=== PATIENT | female | born 1945 | race Caucasian/White ===

== ENCOUNTER 2018-10-18 02:17 | Inpatient (IN) | payer MEDICARE, BC ==
[~2018-10-18] VITALS: Ht 167.6 cm; Wt 82.8 kg
[2018-10-18] VITALS (12 sets, daily range): BP systolic 104–136; BP diastolic 47–66
--- NOTE | 2018-10-18 02:17 | NUR ---
[facility]D CALLED TO PT. HOME BY FAMILY PT. C/O SOB. EMS O2 SAT ON RA 69%. PT. PLACED ON C-PAP O2 SAT 99%. UPON ARRIVAL PT. O2 SAT DECREASING LOW 90'S HIGH 80'S. ORDERS FROM TO PLACE PT. ON BIPAP. BILATERAL LUNG GILMORE ARE RALES AND RHONCHI. PT. STATES SHE AWOKE AT 0100 FEELING SOB.
--- NOTE | 2018-10-18 02:23 | NUR ---
PT. PLACED ON BIPAP AT THIS TIME.
--- NOTE | 2018-10-18 02:31 | NUR ---
BIPABP 14/01, RATE OF 14, 40% FIO2
[2018-10-18] MEDS ORDERED: PROZAC10 MG PO (02:33)
[2018-10-18] MEDS ORDERED: LISINOPRIL2.5 MG PO (02:34)
[2018-10-18] MEDS ORDERED: PROTONIX40 M2 PO (02:34)
[2018-10-18] MEDS ORDERED: LOPRESSOR25 M1 PO (02:34)
--- NOTE | 2018-10-18 02:39 | NUR ---
IV LASIX AND IV MS GIVEN PER MD ORDER.
[2018-10-18] MEDS ORDERED: METO25TAB PO (02:55)
[2018-10-18 02:56] LABS: HEMATOCRIT 41.4 % (37.0-47.0); HEMOGLOBIN 13.3 g/dl (12.0-16.0); IMMATURE GRANULOCYTES 0.4 % (0.0-5.0); MEAN CELL VOLUME 99.3 fL CALC (80.0-100.0); MEAN CORPUSCULAR HGB 31.9 pG CALC (26.0-32.0); MEAN CORPUSCULAR HGB CONC 32.1 g/L CALC (32.0-36.0); NEUT# 7.6 thou/uL (2.00-7.15); RED BLOOD COUNT 4.17 mill/uL (4.20-5.60); RED CELL DISTRI WIDTH 13.4 % (11.5-15.5)
[2018-10-18] MEDS ORDERED: ZESTRIL10 M1 PO (02:56)
[2018-10-18] MEDS ORDERED: FOLIC ACID1 M1 PO (02:57)
[2018-10-18] MEDS ORDERED: VENTOLIN HFA IN (03:00)
[2018-10-18] MEDS ORDERED: TRELEGY ELLIPTA1 AER IN (03:01)
[2018-10-18 03:11] LABS: ALBUMIN 4.6 g/dL (3.2-5.0); BILIRUBIN, TOTAL 0.8 mg/dL (0.0-1.4); CREATININE 1.1 mg/dL (0.5-1.0); POTASSIUM 4.1 mmol/l (3.5-5.1); TOTAL PROTEIN 7.7 g/dL (6.3-8.2)
--- NOTE | 2018-10-18 03:30 | NUR ---
PT. HAS NOT VOIDED OF THIS TIME. PURE WICK CATH IN PLACE, NO URINE IN SUCTION CANISTER. AWARE.
--- NOTE | 2018-10-18 04:30 | NUR ---
SUCTION CANISTER HAS 500 ML CLEAR EMMANUEL URINE IN PLACE.
--- NOTE | 2018-10-18 04:51 | NUR ---
IN ROOM TO DISCUSS CLINICAL FINDINGS WITH PT. VERBALIZED UNDERSTANDING.
--- NOTE | 2018-10-18 04:54 | NUR ---
Admission Note Report Given to: JADIEL RN Transported by: Wheelchair X Stretcher Transported with: X Nurse Transporter X Patent IV X O2 X Professor Of Psychology
--- NOTE | 2018-10-18 04:58 | NUR ---
IV ABT. STARTED PER MD ORDER.
--- NOTE | 2018-10-18 05:00 | NUR ---
PT. TO ICU VIA STRETCHER, WITH RN AND RESP. THERAPIST. NO C/O PT.REMAINS ON BIPAP.
[2018-10-18 05:08] LABS: URINE BILIRUBIN - DIPSTICK NEGATIVE (NEGATIVE); URINE BLOOD DIPSTICK TRACE-INTACT (NEGATIVE); URINE COLOR YELLOW; URINE GLUCOSE - DIPSTICK 100 mg/dL (NEGATIVE); URINE KETONE NEGATIVE (NEGATIVE); URINE LEUK ESTERASE NEGATIVE (NEGATIVE); URINE NITRITE - DIPSTICK NEGATIVE (Negative); URINE PROTEIN - DIPSTICK NEGATIVE (NEG-TRACE); URINE UROBILINOGEN - DIPSTICK 0.2 E.U./dL (0.2)
[2018-10-18 05:13] LABS: CHOLESTEROL HDL RATIO 2.7 (<4.4 (CALC))
--- NOTE | 2018-10-18 05:15 | NUR ---
PATIENT ARRIVED FROM ER. REPORT RECEIVED FROM NOVA. PATIENT IS ALERT AND ORIENTED X3. BIPAP IN PLACE 98 % SAT. PERIPHERAL IV- LEVOFLOXACIN INFUSING. WEIGHT OBTAINED. ADMISSION ASSESSMENT AND HISTORY OBTAINED. VITALS STABLE. SR ON TELE. NO SIGNS OF DISTRESS. SKIN INTACT. WILL CONTINUE TO MONITOR PATIENT.
--- NOTE | 2018-10-18 06:56 | NUR ---
PATIENT RESTING IN BED. NO SIGNS OF DISTRESS. PATIENTS VITALS STABLE. PATIENT TOLERATING BIPAP WELL- O2 SAT 98%. PERIPHERAL IV SALINE LOCK. TEDS APPLIED. PATIENT TABLE NEAR PATIENT. CALL LIGHT WITHIN REACH. WILL CONTINUE TO MONITOR PATIENT.
--- NOTE | 2018-10-18 07:00 | NUR ---
pt awake in bed; no apparent distress noted; pt offers no complaints; assessment completed at this time; pt alert and oriented; denies pain; no n/v noted; resp even and unlabored; pt admits to "a little" shortness of breath; no resp distress noted per narrative writer; lungs clear/ diminished; skin color wnl; bipap intact with settings of 16/8, 40% FiO2; no cough noted; hr reg; wk pedal pulses; no edema noted; bilat chela hose intact; sr on monitor; abd soft with bs present; no bm noted per narrative writer; purewick intact and ineffective; lg urinary incont noted; pericare per narrative writer; bsc placed; #20 in rac flushed and patent; no redness or edema noted at site; plan of care explained; call light within reach; will continue to monitor
--- NOTE | 2018-10-18 07:15 | NUR ---
RT at bedside; bipap placed on hold; no resp distress noted; o2 per nc at 2L
--- NOTE | 2018-10-18 07:37 | NUR ---
o2 sat 94%; o2 via nc now at 3L per RT
--- NOTE | 2018-10-18 08:00 | NUR ---
awake in bed; spouse at bedside; no distress noted; o2 per nc; o2 sat 98-100%; assisted to bsc without resp distress; voiding clear yellow urine without complication; plan of care/ procedures explained; will continue to monitor
--- NOTE | 2018-10-18 08:25 | NUR ---
0815- pt transferred to CT Scan via wc with portable o2 in stable condition; gag writer remains with pt; will continue to monitor 0825- returned to unit in stable condition; pt tolerated activity well; no resp distress noted; monitoring attachments reapplied; will continue to monitor
--- NOTE | 2018-10-18 10:00 | NUR ---
awake in bed; no distress noted; resp even and unlabored; o2 per nc at 3L; no resp distress noted; iv intact with abt infusing without complication; call light within reach; will continue to monitor
--- NOTE | 2018-10-18 10:16 | NUR ---
NOTIFIED OF CRITICAL TROP OF 0.22;NO NEW ORDERS RECEIVED.
--- NOTE | 2018-10-18 10:52 | NUR ---
Dr Avina present at bedside to assess pt and discuss plan of care
--- NOTE | 2018-10-18 12:03 | NUR ---
awake in bed; offers no complaints; no apparent distress noted; resp even and unlabored; o2 per nc; o2 sat 99%; iv intact; sr on monitor; eating lunch; will continue to monitor
--- NOTE | 2018-10-18 13:20 | NUR ---
in tube conversion technician at bedside
--- NOTE | 2018-10-18 14:00 | NUR ---
awake in bed; no apparent distress noted; resp even and unlabored; sr on monitor; o2 per nc; iv intact; spouse at bedside; call light within reach; will continue to monitor
--- NOTE | 2018-10-18 16:07 | NUR ---
awake in bed; offers no complaints; resp even and unlabored; iv intact; o2 per nc; call light within reach; will continue to monitor
--- NOTE | 2018-10-18 18:06 | NUR ---
awake in bed reading; offers no complaints; denies needs; iv intact and patent; sr on monitor; o2 per nc; resp even and unlabored; call light within reach
--- NOTE | 2018-10-18 18:45 | NUR ---
certified master safe technician here.
--- NOTE | 2018-10-18 19:30 | NUR ---
awake reading. denies resp diff. o2 cont per nc. cardiac/vascular sonographer shows sinus rhythm. #20 rac saline lock. po fluids taken fair. voided per bsc. fall precautions cont.
--- NOTE | 2018-10-18 22:00 | NUR ---
reading. no distress. o2 cont.
[2018-10-19] VITALS (10 sets, daily range): BP systolic 118–141; BP diastolic 52–67
--- NOTE | 2018-10-19 00:01 | NUR ---
eyes closed. no distress. cardiac technologist shows sinus rhythm.
--- NOTE | 2018-10-19 02:00 | NUR ---
resting quietly. resps even & unlabored. no apparent distress.
--- NOTE | 2018-10-19 04:00 | NUR ---
eyes closed. no distress. case monitor shows sinus rhythm.
--- NOTE | 2018-10-19 05:00 | NUR ---
lab here. bloos drawn.
[2018-10-19 05:20] LABS: IMMATURE GRANULOCYTES 0.3 % (0.0-5.0); MEAN CORPUSCULAR HGB 32.3 pG CALC (26.0-32.0); MEAN CORPUSCULAR HGB CONC 32.9 g/L CALC (32.0-36.0); NEUT# 4.51 thou/uL (2.00-7.15); RED BLOOD COUNT 3.47 mill/uL (4.20-5.60); RED CELL DISTRI WIDTH 13.3 % (11.5-15.5)
[2018-10-19 05:41] LABS: HEMOGLOBIN 11.2 g/dl (12.0-16.0)
[2018-10-19 05:45] LABS: ALBUMIN 4.1 g/dL (3.2-5.0); ALKALINE PHOSPHATASE 72 u/l (38-126); AMYLASE 51 u/l (30-110); ANION GAP 11 (6-22 (CALC)); BILIRUBIN, TOTAL 1.3 mg/dL (0.0-1.4); BUN 19 mg/dL (8-23); BUN/CREATININE RATIO 24 (12-20 (CALC)); CARBON DIOXIDE 28 mmol/l (22-30); CHLORIDE 101 mmol/l (95-108); CREATININE 0.8 mg/dL (0.5-1.0); GFR > 60 ML/MIN (>=60 (CALC)); GFR FOR AFR.AMER. > 60 ML/MIN (>=60 (CALC)); LIPASE 97 u/l (23-300); MAGNESIUM 2.1 mg/dL (1.6-2.3); POTASSIUM 4.2 mmol/l (3.5-5.1); SGOT/AST 20 u/l (9-36); SODIUM 136 mmol/l (137-146); TOTAL PROTEIN 6.5 g/dL (6.3-8.2)
--- NOTE | 2018-10-19 06:00 | NUR ---
no acute change this shift. no resp diff.
--- NOTE | 2018-10-19 06:55 | NUR ---
pt resting with eyes closed; no apparent distress noted; easily aroused; pt offers no complaints; assessment completed at this time; pt alert and oriented; denies pain; no n/v noted; resp even and unlabored; lungs clear; skin color wnl; o2 per nc at 3L/ titrated to 2L; o2 sat 100%; no resp distress noted; hr reg; strong pulses; no edema noted; bilat chela hose intact; sr on monitor; abd soft with bs present; no bm noted per racebook writer; voiding without difficulty; bsc; #20 flushed and patent to rac; no redness or edema noted at site; plan of care/am meds explained; call light within reach; will continue to monitor
--- NOTE | 2018-10-19 07:30 | NUR ---
Dr Avina called this telegraphic typewriter installer; provided with update; radiology to be notified for echo report; no orders received
--- NOTE | 2018-10-19 08:15 | NUR ---
awake in bed; offers no complaints; no apparent distress noted; resp even and unlabored; iv intact; o2 per nc; call light within reach; will continue to monitor
--- NOTE | 2018-10-19 09:00 | NUR ---
awake in bed; pt assist to bathroom for bath; pt without any resp distress during activity; linens changed; remains on o2 at 2L; will assist to recliner; will continue to monitor
--- NOTE | 2018-10-19 10:02 | NUR ---
awake in recliner; no distress noted; resp even and unlabored; o2 per nc; spouse at bedside; sr on monitor; call light within reach; will continue to monitor
--- NOTE | 2018-10-19 11:38 | NUR ---
Dr Avina present at bedside to assess pt and discuss plan of care
--- NOTE | 2018-10-19 12:22 | NUR ---
awake in recliner; assisted back to bed; pt offers no complaints; o2 per nc at 2L; iv intact; med/surg transfer explained; will continue to monitor
--- NOTE | 2018-10-19 12:48 | NUR ---
report called to Shane Polk RN
--- NOTE | 2018-10-19 13:25 | NUR ---
pt transferred to med/surg with portable o2 in stable consition; bedside report/update given to Shane Polk RN
--- NOTE | 2018-10-19 13:30 | NUR ---
PT HAD COME FROM ICU VIA WHEELCHAIR. PT NOW RESTING IN BED WITH NO S/S. PT IS READING HER BOOK. RESPS EVEN AND UNLABORED. SAFETY PRECAUTIONS REINFORCED AND CALL LIGHT IN REACH.
--- NOTE | 2018-10-19 15:15 | NUR ---
PT IS RESTING IN BED . PT DENIES PAIN AT THIS TIME. CALL LIGHT IN REACH.
--- NOTE | 2018-10-19 19:30 | NUR ---
PATIENT RESTING IN BED WITH HOB ELEVATED AND O2 VIA NASAL CANNULA IN PLACE. PATIENT IS AWAKE ALERT AND ORIENTEDX3. NO COMPLAINTS AT THIS TIME. PATIENT IS VOIDING QS CLEAR YELLOW URINE IN BR. STATES THAT SHE HAS BM TODAY. SALINE LOCK INTACT TO RIGHT AC-IS HEALTHY AT THIS TIME. SAFETY PRECAUTIONS REINFORCED. CALL LIGHT IN REACH. WILL CONT TO MONITOR.
--- NOTE | 2018-10-20 | NUR ---
PATIENT RESTING IN BED WITH O2 IN PLACE VIA NASAL CANNULA READING. ZOSYN INFUSING VIA RIGHT AC SITE ORDERED. NO COMPLAINTS AT THIS TIME. SAFETY PRECAUTIONS REINFORCED. CALL LIGHT IN REACH. WILL CONT TO MONITOR.
--- NOTE | 2018-10-20 04:25 | NUR ---
PATIENT APPEARS SLEEPING WITH O2 VIA NASAL CANNULA IN PLACE. RESP ARE EVEN AND UNLABORED. CALL LIGHT IN REACH. WILL CONT TO MONITOR.
[2018-10-20 04:26] VITALS: BP 150/84
[2018-10-20 04:56] LABS: HEMATOCRIT 33.9 % (37.0-47.0); HEMOGLOBIN 10.7 g/dl (12.0-16.0); IMMATURE GRANULOCYTES 0.2 % (0.0-5.0); MEAN CELL VOLUME 98.8 fL CALC (80.0-100.0); MEAN CORPUSCULAR HGB 31.2 pG CALC (26.0-32.0); MEAN CORPUSCULAR HGB CONC 31.6 g/L CALC (32.0-36.0); NEUT# 3.94 thou/uL (2.00-7.15); RED BLOOD COUNT 3.43 mill/uL (4.20-5.60); RED CELL DISTRI WIDTH 13.3 % (11.5-15.5)
[2018-10-20 05:20] LABS: ALKALINE PHOSPHATASE 72 u/l (38-126); ANION GAP 10 (6-22 (CALC)); BILIRUBIN, TOTAL 1.2 mg/dL (0.0-1.4); BUN 12 mg/dL (8-23); BUN/CREATININE RATIO 18 (12-20 (CALC)); CARBON DIOXIDE 28 mmol/l (22-30); CHLORIDE 104 mmol/l (95-108); CREATININE 0.7 mg/dL (0.5-1.0); GFR > 60 ML/MIN (>=60 (CALC)); GFR FOR AFR.AMER. > 60 ML/MIN (>=60 (CALC)); MAGNESIUM 2.3 mg/dL (1.6-2.3); POTASSIUM 4.4 mmol/l (3.5-5.1); SGOT/AST 20 u/l (9-36); SODIUM 137 mmol/l (137-146); TOTAL PROTEIN 6.5 g/dL (6.3-8.2)
[2018-10-20 07:40] VITALS: BP 131/55
--- NOTE | 2018-10-20 07:40 | NUR ---
ASSESSMENT IS COMPLETED: IV SITE IS FREE FROM REDNESS OR EDEMA. HR IS REG,PULSES ARE STRON GX4, ABD IS SOFT WITH ACTIVE BS. BREATH SOUNDS ARE CLEAR IN UPPER WITH COARSE IN R MIDDLE AND DIMINISHED IN THE BASES, O2 @ 3LITERS WITH NC. CONTINUE TO OBSERVE AND MONITOR.
--- NOTE | 2018-10-20 10:49 | NUR ---
RT INT O TEST FOR SWALLOW EVAL., EVERYTHING IS WELL.
--- NOTE | 2018-10-20 12:20 | NUR ---
PT IS RELAXING IN BED WITH NO DISTRESS NOTED. IV SITE IS FREE FROM REDNESS OR EDEMA.
--- NOTE | 2018-10-20 13:32 | NUR ---
REPORT RECEIVED FROM THA. PT IS RESTING IN BED READING HER BOOK. NO S/S OF DISTRESS NOTED. PT DENIES ANY NEEDS AT THIS TIME. CALL LIGHT IN REACH.
--- NOTE | 2018-10-20 16:00 | NUR ---
PT IS RESTING IN BED AND VISITING WITH IN ROOM. PT DENIES ANY NEEDS AT THIS TIME. CALL LIGHT IN REACH.
[2018-10-20 16:15] VITALS: BP 136/58
[2018-10-20 19:01] VITALS: BP 133/72
--- NOTE | 2018-10-20 20:34 | NUR ---
PT UPRIGHT IN BED W/LIGHTS AND TV ON READING A BOOK. PT ASSESSMENT [id number] AT THIS TIME. LUNG SOUNDS ARE CLEAR, P0T DENIES SOB, 02 ON @2LNC, ABD DIST SOFT NON-TENDER W/ACTIVE BOWEL SOUNDS, NO NOTED EDEMA, WEARK P0EDAL PULSES NOTED. PT LOCX4 AND AMUBLATED TO RESTROOM STEADY GAIT, 900CC OF CLEAR DARK YELLOW URINE EMPTIED AT THIS TIME. WILL CONTINUE TO MONITOR, P0T DENIES ANY OTHER NEEDS AT THIS TIME. CALL LIGHT AT BEDSIDE.
--- NOTE | 2018-10-20 22:55 | NUR ---
PT CALLED TO REPORT FEELING SOB. UPON ENTERING ROOM PT WAS IN LOW FOWLERS POSITION W/02NC ON. PT REPORTED HAVING AMBULATED TO RESTROOM AND WHEN SHE GOT BACK TO BED SHE FELT SOB AND TIGHT IN THE CHEST. PT V/S WERE ASSESSED AND RESP CALLED. PT 02 SAT'S @96%, HR WAS ELEVATED BETWEEN 106-117. CODING CONSULTANT AND RESP STAYED W/PT UNTIL SHE REPORTED FEELING BETTER. NO APPARENT SOB, PT DENIES ANY SWEATS OR NAUSEA, DENIES RADIATING PAIN. REPORTS FEELING MUCH BETTER NOW, STATES THAT IT FELT JUST LIKE WHEN SHE FIRST CAME TO THE HOSPITAL. SHE HAD AMBULATED TO RESTROOM AND THEN FELT LIKE SHE COULDN'T CATCH HER BREATH AFTERWARD. WILL FOLLOW-UP AND REASSESS PT. PT INSTRUCTED TO CALL IF IT WORSENS OR IF SHE NEEDS TO AMBULATE SO THAT WE CAN WALK WITH HER.
--- NOTE | 2018-10-21 02:25 | NUR ---
PT SLEEPING AT THIS TIME. NO S/O DISTRESS NOTED. CALL LIGHT AT SIDE.
[2018-10-21 04:11] VITALS: BP 149/69
[2018-10-21 05:18] LABS: HEMATOCRIT 36.5 % (37.0-47.0); HEMOGLOBIN 11.8 g/dl (12.0-16.0); IMMATURE GRANULOCYTES 0.3 % (0.0-5.0); MEAN CELL VOLUME 99.5 fL CALC (80.0-100.0); MEAN CORPUSCULAR HGB 32.2 pG CALC (26.0-32.0); MEAN CORPUSCULAR HGB CONC 32.3 g/L CALC (32.0-36.0); NEUT# 5.07 thou/uL (2.00-7.15); RED BLOOD COUNT 3.67 mill/uL (4.20-5.60); RED CELL DISTRI WIDTH 13.2 % (11.5-15.5)
[2018-10-21 05:25] LABS: ALBUMIN 4.2 g/dL (3.2-5.0); ALKALINE PHOSPHATASE 73 u/l (38-126); ANION GAP 11 (6-22 (CALC)); BUN 12 mg/dL (8-23); BUN/CREATININE RATIO 16 (12-20 (CALC)); CARBON DIOXIDE 28 mmol/l (22-30); CHLORIDE 105 mmol/l (95-108); CREATININE 0.7 mg/dL (0.5-1.0); GFR > 60 ML/MIN (>=60 (CALC)); GFR FOR AFR.AMER. > 60 ML/MIN (>=60 (CALC)); MAGNESIUM 2.4 mg/dL (1.6-2.3); POTASSIUM 4.5 mmol/l (3.5-5.1); SGOT/AST 22 u/l (9-36); SODIUM 139 mmol/l (137-146); TOTAL PROTEIN 6.8 g/dL (6.3-8.2)
[2018-10-21 05:26] LABS: BILIRUBIN, TOTAL 1.8 mg/dL (0.0-1.4)
--- NOTE | 2018-10-21 07:39 | NUR ---
REPORT RECEIVED FROM TWAN COCHRAN. PT SITTING UPRIGHT IN BED. DENIES PAIN. REPORTING OF CONCERNS ENCOURAGED. CALL LIGHT REVIEWED AND IN REACH. PLAN OF CARE DISCUSSED. PT STATES UNDERSTANDING.
[2018-10-21 07:41] VITALS: BP 135/78
--- NOTE | 2018-10-21 10:30 | NUR ---
DR. KUMAR IN TO SEE PT. DISCHARGE HOME DISCUSSED. AGREED UPON BY BOTH. O2 REMOVED PER DR. KUMAR. O2 WALKING TRIAL TO FOLLOW.
--- NOTE | 2018-10-21 11:09 | NUR ---
PT AMBULATED IN HALLWAYS ON RA. O2 SAT BETWEEN 97-93%. NO SOB NOTED. STEADY GAIT. PT TOLERATED ACTIVITY WELL.
[2018-10-21] MEDS ORDERED: LEVAQUIN500 MG PO (11:41)
--- NOTE | 2018-10-21 12:06 | NUR ---
Discharge instructions given. Patient verbalizes understanding of same. Discharged in stable condition via Wheelchair to Home with family. All belongings sent with pt.
--- NOTE | 2018-10-21 13:36 | NUR ---
Discharge instructions given. Patient verbalizes understanding of same. Discharged in stable condition via Wheelchair to Home with family. All belongings sent with pt.
== END 2018-10-21 12:10 | disposition home or self-care (01) | DRG 177 ==
LOC: ED 02:17 → ED-I 04:33 → ED 04:49 → ICU 04:50 → MS2 04:50
PROVIDERS: Emergency Medicine; ADMIT Internal Medicine Nephrology; ATTEND Internal Medicine Nephrology
PROC: 5A09357 Assistance with Respiratory Ventilation, Less than 24 Consecutive Hours, Continuous Positive Airway Pressure (ICD-10-PCS; principal; 2018-10-18)
DX: J69.0 Pneumonitis due to inhalation of food and vomit (principal); J96.01 Acute respiratory failure with hypoxia; J81.1 Chronic pulmonary edema; I10 Essential (primary) hypertension; J44.9 Chronic obstructive pulmonary disease, unspecified; I49.9 Cardiac arrhythmia, unspecified; J38.00 Paralysis of vocal cords and larynx, unspecified; M19.90 Unspecified osteoarthritis, unspecified site; Z98.84 Bariatric surgery status; Z96.641 Presence of right artificial hip joint
CPT/HCPCS: J1650

== ENCOUNTER 2020-01-01 01:57 | Inpatient (IN) | payer MEDICARE ==
[~2020-01-01] VITALS: Ht 162.6 cm; Wt 74.8 kg
[~2020-01-01 01:57] MED LIST: FOLIC ACID1 M1 PO; LEVAQUIN500 MG PO; LISINOPRIL2.5 MG PO; LOPRESSOR25 M1 PO; PROTONIX40 M2 PO; PROZAC10 MG PO; TOPROL XL25 M1 PO; TRELEGY ELLIPTA1 AER IN; VENTOLIN HFA IN; ZESTRIL10 M1 PO
--- NOTE | 2020-01-01 01:57 | NUR ---
PT TO ROOM 10 BY EMS WITH BIPAP IN PLACE. PT WOKE UP SOB ABOUT 30 MINUTES AGO. 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
--- NOTE | 2020-01-01 02:30 | NUR ---
PT REMOVED FROM BIPAP AND PLACED ON 02 @ 2L.
[2020-01-01 02:33] LABS: HEMATOCRIT 33.3 % (37.0-47.0); HEMOGLOBIN 10.5 g/dl (12.0-16.0); IMMATURE GRANULOCYTES 0.8 % (0.0-5.0); MEAN CELL VOLUME 94.9 fL CALC (80.0-100.0); MEAN CORPUSCULAR HGB 29.9 pG CALC (26.0-32.0); MEAN CORPUSCULAR HGB CONC 31.5 g/dL CAL (32.0-36.0); NEUT# 11.45 thou/uL (2.00-7.15); RED BLOOD COUNT 3.51 mill/uL (4.20-5.60)
[2020-01-01 03:03] LABS: MYOGLOBIN 56 ng/mL (0 - 62)
[2020-01-01 03:04] LABS: ALBUMIN 3.6 g/dL (3.2-5.0); ALKALINE PHOSPHATASE 87 u/l (38-126); BUN 12 mg/dL (8-23); BUN/CREATININE RATIO 18 (12-20 (CALC)); CARBON DIOXIDE 24 mmol/l (22-30); CHLORIDE 102 mmol/l (95-108); CREATININE 0.7 mg/dL (0.5-1.0); GFR > 60 ML/MIN (>=60 (CALC)); GFR FOR AFR.AMER. > 60 ML/MIN (>=60 (CALC)); SODIUM 134 mmol/l (137-146); TOTAL PROTEIN 6.3 g/dL (6.3-8.2)
[2020-01-01 03:16] LABS: ANION GAP 10 (6-22 (CALC)); BILIRUBIN, TOTAL 0.8 mg/dL (0.0-1.4); POTASSIUM 2.4 mmol/l (3.5-5.1); SGOT/AST 40 u/l (9-36)
--- NOTE | 2020-01-01 03:30 | NUR ---
AFTER PLACING PT ON BEDPAIN 2 TIMES PT REQUESTED PRATT CATHETER. PT STATES THEY TRIED THE "HOT DOG" ON HER THE LAST TIME AND IT MADE A MESS. DR JEFFERSON INFORMED AND AGREED.
[2020-01-01 03:50] LABS: URINE BILIRUBIN - DIPSTICK NEGATIVE (NEGATIVE); URINE BLOOD DIPSTICK TRACE-INTACT (NEGATIVE); URINE COLOR YELLOW; URINE GLUCOSE - DIPSTICK NEGATIVE (NEGATIVE); URINE KETONE NEGATIVE (NEGATIVE); URINE LEUK ESTERASE TRACE (NEGATIVE); URINE NITRITE - DIPSTICK NEGATIVE (Negative); URINE PROTEIN - DIPSTICK NEGATIVE (NEG-TRACE); URINE SPECIFIC GRAVITY 1.015; URINE UROBILINOGEN - DIPSTICK 0.2 E.U./dL (0.2)
[2020-01-01] MEDS ORDERED: VITAMIN D2000 UNI2 PO (04:02)
--- NOTE | 2020-01-01 04:16 | NUR ---
REPORT GIVEN TO TWAN FLORES.
--- NOTE | 2020-01-01 04:30 | NUR ---
Admission Note Report Given to: TWAN FUENTES Transported by: Wheelchair X Stretcher Transported with: X Nurse Transporter X Patent IV X O2 X Recreation Aide Location: ICU X MS2
--- NOTE | 2020-01-01 04:40 | NUR ---
0440-Pt brought to Med-Surg unit. Handoff from TWAN Whitmore. Pt is pleasant. Denies pain. States SOB is getting better. Her general appearance looks well. Assessment completed. Fluids provided. Pasquale ramirez applied. Pt states she would like to rest. Bed low and locked. Call light and phone within reach. Pt stable. Will continue to monitor.
[2020-01-01 04:50] VITALS: BP 131/76
--- NOTE | 2020-01-01 06:08 | NUR ---
NEB TX NOT GIVEN DUE TO COVID SWAB PENDING.
--- NOTE | 2020-01-01 07:00 | NUR ---
SHIFT CHANGE REPORT, PT AWAKE ALERT AND ORIENTED RESTING IN BED, O2 @ 3L VIA NC IN PLACE, TELE MONITOR IN PLACE, PRATT CATHETER IN PLACE WITH EMMANUEL URINE CALL FORD IN REACH AND BED IN LOWEST POSITION.
[2020-01-01 07:51] LABS: BUN 10 mg/dL (8-23); BUN/CREATININE RATIO 15 (12-20 (CALC)); CARBON DIOXIDE 28 mmol/l (22-30); CHLORIDE 100 mmol/l (95-108); CREATININE 0.6 mg/dL (0.5-1.0); GFR > 60 ML/MIN (>=60 (CALC)); GFR FOR AFR.AMER. > 60 ML/MIN (>=60 (CALC)); MAGNESIUM 2.1 mg/dL (1.6-2.3); SODIUM 136 mmol/l (137-146)
[2020-01-01 07:52] LABS: ANION GAP 11 (6-22 (CALC)); POTASSIUM 3.2 mmol/l (3.5-5.1)
[2020-01-01 09:54] VITALS: BP 99/62
[2020-01-01 10:30] VITALS: BP 94/65
--- NOTE | 2020-01-01 10:46 | NUR ---
PRATT CATHETER REMOVED @ 1030, PROCEDURE TOLERATED WELL, AWAITING VOID.-
[2020-01-01 15:00] VITALS: BP 105/62
--- NOTE | 2020-01-01 16:00 | NUR ---
RESTING IN BED, NEW ORDERS WRITTEN AND PT INFORMED AND STATED UNDERSTANDING, ALL NEEDS ADDRESSED.
[2020-01-01 18:40] VITALS: BP 105/57
--- NOTE | 2020-01-01 19:00 | NUR ---
RECEIVED REPORT FROM AM NURSE. PATIENT RESTING IN BED. PATIENT VITALS STABLE. WILL CONTINUE TO MONITOR.
[2020-01-01 20:57] VITALS: BP 120/73
[2020-01-02] VITALS (20 sets, daily range): BP systolic 96–147; BP diastolic 51–84
--- NOTE | 2020-01-02 01:40 | NUR ---
rec'd per bed to icu8. in high fowlers position. o2 cont 10 l/m per nrb. sao2 100%. coarse breath sounds bilat. no acute resp distress. classroom monitor shows sinus rhythm hr 87. oriented to room.
--- NOTE | 2020-01-02 01:50 | NUR ---
up to bsc. rylan well. denies distress.
--- NOTE | 2020-01-02 02:05 | NUR ---
dae in xray notified of need for stat cxr.
--- NOTE | 2020-01-02 02:15 | NUR ---
up to bsc. voided well. denies distress.
--- NOTE | 2020-01-02 02:15 | NUR ---
xray here. pcxr obtained.
--- NOTE | 2020-01-02 02:30 | NUR ---
nrb changed to 2 l/m nasal cannula. sao2 90-91%. o2 increased to 3 then 4 l/m. pt said "i would prefer to keep the mask off." instructed pt this commercial loan underwriter would try to keep off mask unless sao2 wasn't stable. pt verbalized understanding. sao2 93-95%.
--- NOTE | 2020-01-02 03:25 | NUR ---
up to bsc. desats to 87% then recovers quickly to 92-94% upon return to bed. denies distress.
--- NOTE | 2020-01-02 04:00 | NUR ---
eyes closed. nad. o2 cont. remains in high fowlers position.
[2020-01-02 05:12] LABS: HEMATOCRIT 35.2 % (37.0-47.0); HEMOGLOBIN 11.2 g/dl (12.0-16.0); IMMATURE GRANULOCYTES 0.6 % (0.0-5.0); MEAN CELL VOLUME 93.4 fL CALC (80.0-100.0); MEAN CORPUSCULAR HGB 29.7 pG CALC (26.0-32.0); MEAN CORPUSCULAR HGB CONC 31.8 g/dL CAL (32.0-36.0); NEUT# 10.95 thou/uL (2.00-7.15); RED BLOOD COUNT 3.77 mill/uL (4.20-5.60); RED CELL DISTRI WIDTH 14.2 % (11.5-15.5)
[2020-01-02 05:35] LABS: ALBUMIN 3.9 g/dL (3.2-5.0); ALKALINE PHOSPHATASE 85 u/l (38-126); ANION GAP 9 (6-22 (CALC)); BILIRUBIN, TOTAL 0.9 mg/dL (0.0-1.4); BUN 12 mg/dL (8-23); BUN/CREATININE RATIO 18 (12-20 (CALC)); CARBON DIOXIDE 31 mmol/l (22-30); CHLORIDE 99 mmol/l (95-108); CREATININE 0.7 mg/dL (0.5-1.0); GFR > 60 ML/MIN (>=60 (CALC)); GFR FOR AFR.AMER. > 60 ML/MIN (>=60 (CALC)); POTASSIUM 3.2 mmol/l (3.5-5.1); SGOT/AST 36 u/l (9-36); SODIUM 135 mmol/l (137-146); TOTAL PROTEIN 6.6 g/dL (6.3-8.2)
--- NOTE | 2020-01-02 06:00 | NUR ---
monitor worker shows sinus rhythm hr 84
--- NOTE | 2020-01-02 06:45 | NUR ---
REPORT RECEIVED FROM WILL ARRIAGA. CARE ASSUMED.
--- NOTE | 2020-01-02 07:20 | NUR ---
PT RESTING IN BED AWAKE. PT IS ALERT AND ORIENTED X3. SHIFT ASSESSMENT COMPLETED AT THIS TIME. IV PATENT X1. CALL LIGHT IN REACH. WILL CONTINUE TO MONITOR.
--- NOTE | 2020-01-02 08:15 | NUR ---
DR SERRANO AT BEDSIDE.
--- NOTE | 2020-01-02 09:08 | NUR ---
1 OF 4 BOTTLES SHOWS GRAM POSITIVE COCCI. PT WAS RECENTLY AT [facility], HAS RISK FACTORS FOR [facility]. VANCO ADDED PER DR [place], DR SERRANO AGREED. WILL FOLLOW ON FINAL CX
--- NOTE | 2020-01-02 10:05 | NUR ---
PT SITTING UP IN BED READING A BOOK. RESP AR EVEN AND UNLABORED. VSS ON MONITOR. CALL LIGHT IN REACH. WILL CONTINUE TO MONITOR.
--- NOTE | 2020-01-02 12:00 | NUR ---
PT SITTIGN UP IN BED WATCHING TV. SET UP FOR NOON MEAL AT THIS TIME. RESP ARE EVEN AND UNLABORED AT THIS TIME. VSS ON MONITOR. CALL LIGHT IN REACH. WILL CONTINUE TO MONITOR.
--- NOTE | 2020-01-02 12:30 | NUR ---
O2 DECREASED TO 2LNC. O2 SATS REMAIN > 94%
--- NOTE | 2020-01-02 14:00 | NUR ---
pt sitting up in bed reading book. resp are even and unlabored. no distress noted. call light in reach. will continue to monitor.
--- NOTE | 2020-01-02 14:32 | NUR ---
SPOKE WITH YOGESH REGARDING PT'S TRELEGY INHALER IN PT OWN MED. PT/ AWARE NEED TO BE BROUGHT IN. PTS BROUGHT SOME BELONGINGS, FORGOT INHALER, WILL FOLLOW UP TOMORROW.
--- NOTE | 2020-01-02 15:30 | NUR ---
PT RESTIONG IN BED READING A BOOK. RESP ARE EVEN AND UNLABORED. NO DISTRESS NOTED. CALL LIGHT IN REACH. WILL CONTINUE TO MONITOR.
--- NOTE | 2020-01-02 17:40 | NUR ---
PT SET UP FOR PM MEAL. RESP ARE EVEN AND UNLABORED. NO DISTRESS NOTED. VSS ON MONITOR. CALL LIGHT IN REACH. WILL CONTIMNUE TO MONITOR,
--- NOTE | 2020-01-02 20:00 | NUR ---
PATIENT CONTINUES TO REST IN BED. PATIENT WITH NO SIGNS OF DISTRESS. PATIENT VITALS STABLE. WILL CONTINUE TO MONITOR.
--- NOTE | 2020-01-02 22:00 | NUR ---
PATIENT WITH NO SIGNS OF DISTRESS. ASSESSMENT COMPLETED. PATIENT REQUESTING WATER. IV WORKING WELL. VITALS STABLE. NO SKIN ISSUES. WILL CONTINUE TO MONITOR.
[2020-01-03] VITALS (20 sets, daily range): BP systolic 92–134; BP diastolic 51–70
--- NOTE | 2020-01-03 | NUR ---
PATIENT GIVEN ANTIBIOTIC. PATIENT RESTING IN BED. NO COMPLAINTS OF PAIN OR DISCOMFORT. VITALS STABLE. WILL CONTINUE TO MONITOR.
--- NOTE | 2020-01-03 02:00 | NUR ---
PATIENT RESTING IN BED. PATIENT IN NO DISTRESS. PATIENTS VITALS STABLE. WILL CONTINUE TO MONITOR.
--- NOTE | 2020-01-03 04:00 | NUR ---
PATIENT RESTING. PATIENT UP TO BEDSIDE COMMODE. PATIENT WITH NO SIGNS OF DISTRESS. PATIENT WITH NO COMPLAINTS OF PAIN OR DISCOMFORT. WILL CONTINUE TO MONITOR.
[2020-01-03 05:51] LABS: HEMATOCRIT 34.9 % (37.0-47.0); HEMOGLOBIN 11.1 g/dl (12.0-16.0); IMMATURE GRANULOCYTES 0.9 % (0.0-5.0); MEAN CELL VOLUME 94.8 fL CALC (80.0-100.0); MEAN CORPUSCULAR HGB 30.2 pG CALC (26.0-32.0); MEAN CORPUSCULAR HGB CONC 31.8 g/dL CAL (32.0-36.0); NEUT# 15.16 thou/uL (2.00-7.15); RED BLOOD COUNT 3.68 mill/uL (4.20-5.60); RED CELL DISTRI WIDTH 14.3 % (11.5-15.5)
--- NOTE | 2020-01-03 06:00 | NUR ---
PATIENT WITH COMPLAINTS OF SOB. PATIENT O2 SAT >92% ON 1L NC. PATIENT VERY ANXIOUS. PATIENT GIVEN PRN INHALER AND SCHEDULED STERIODS. VITALS STABLE. PATIENT WITH NO COMPLAINTS OF PAIN. WILL CONTINUE TO MONITOR.
[2020-01-03 06:18] LABS: ANION GAP 10 (6-22 (CALC)); BUN 16 mg/dL (8-23); BUN/CREATININE RATIO 20 (12-20 (CALC)); CARBON DIOXIDE 31 mmol/l (22-30); CHLORIDE 97 mmol/l (95-108); CREATININE 0.8 mg/dL (0.5-1.0); GFR > 60 ML/MIN (>=60 (CALC)); GFR FOR AFR.AMER. > 60 ML/MIN (>=60 (CALC)); SODIUM 135 mmol/l (137-146)
--- NOTE | 2020-01-03 06:45 | NUR ---
REPORT RECEIVED FROM MARIA. KASSIE GEIGER.
--- NOTE | 2020-01-03 07:15 | NUR ---
PT SITTING UP IN BED AWAKE. PT IS ALERT AND ORIENTED X3. SHIFT ASSESSMENT COMPLETED AT THIS TIME. IV PATENT X1. CALL LIGHT IN REACH. WILL CONTINUE TO MONITOR.
--- NOTE | 2020-01-03 08:39 | NUR ---
DR SERRANO AT BEDSIDE AT THIS TIME
--- NOTE | 2020-01-03 09:53 | NUR ---
PT SITTING UP IN BED READING A BOOK. RESP ARE EVEN AND UNLABORED. NO DISTRESS NOTED. CALL LIGHT IN REACH. WILL CONTINUE TO MONITOR.
--- NOTE | 2020-01-03 10:30 | NUR ---
PT TO MEDSUR VIA WHEELCHAIR ACCOMPANIED BY SCALER FOR SHOWER.
--- NOTE | 2020-01-03 11:02 | NUR ---
PT RETURNED VIA WHEELCHAIR TO ROOM 8 IN STABLE CONDITIONS
--- NOTE | 2020-01-03 12:00 | NUR ---
PT SITTING UP IN BED READING A BOOK. RESP ARE EVEN AND UNLABORED. NO DISTRESS NOTED. CALL LIGHT IN REACH. WILL CONTINUE TO MONITOR.
--- NOTE | 2020-01-03 14:00 | NUR ---
PT SITTING UP IN BED READING A BOOK. RESP ARE EVEN AND UNLABORED. NO DISTRESS NOTED. VSSON MONITOR. CALL LIGHT IN REACH. WILL CONTINUE TO MONITOR.
--- NOTE | 2020-01-03 16:00 | NUR ---
PT SITTING UP IN BED READING A BOOK. NO COMPLAINTS VOICED. VSS ON MONITOR. CALL LIGHT IN REACH. WILL CONTINUE TO [facility].
--- NOTE | 2020-01-03 18:00 | NUR ---
PT SITTING UP IN BED READING A BOOK. RESP ARE EVEN AND UNLABORED. NO DISTRESS NOTED. CALL LIGHT IN REACH. WILL CONTINUE TO MONIOTR.
--- NOTE | 2020-01-03 19:00 | NUR ---
REPORT RECIEVED FROM Adriana HARVEY RN, CARE OF PT ASSUMED AT THIS TIME.
--- NOTE | 2020-01-03 20:15 | NUR ---
PT APPEARS TO BE SLEEEPING COMFORTABLY, NO APPARENT DISTRESS. RESPIRATIONS REGULAR AND UNLABORED. CALL FORD REMAINS WITHIN REACH. WILL WAKE PT WHEN SCHEDULED MEDICATIONS ARE DUE.
--- NOTE | 2020-01-03 21:20 | NUR ---
PT SLEEPING, APPEARS COMFORTABLE AND IN NO DISTRESS. RESPIRATIONS REGULAR AND UNLABORED. WAKES EASILY. PHYSICAL ASSESMENT COMPLETE. SCHEDULED MEDICATIONS ADMINISTERED, SEE E-MAR. FRESH ICE WATER PROVIDED PER PTS REQUEST. DENIES FURTHER NEEDS AT THIS TIME. PLAN OF CARE REVIEWED. PT VERBALIZES UNDERSTANDING AND DENIES QUESTIONS. PERSONAL ITEMS WITHIN REACH. BED LOCKED IN LOW POSITION W/ BEDRAILS UP X2. CALL FORD WITHIN REACH, AGREES TO CALL PRN.
[2020-01-04] VITALS (7 sets, daily range): BP systolic 128–162; BP diastolic 63–82
--- NOTE | 2020-01-04 00:55 | NUR ---
PT SITTING UP IN BED WATCHING TV. PT REPORTS SHE FEELS ANXIOUS. ALLOWED TIME FOR PT TO EXPRESS HER FEELINGS AND ASKED PT IF THEIR WAS ANYTHING THAT WOULD HELP HER ANXIETY. PT REQUESTS SKIM MILK. SKIM MILK PROVIDED REQUESTED. PT DENIES FURTHER NEEDS. SCHEDULED ZOSYN ADMINISTERED, SEE E-MAR. CALL LOGAN PHAN WITHING REACH, PT AGREES TO CALL PRN.
--- NOTE | 2020-01-04 02:46 | NUR ---
PT APPEARS TO BE SLEEPING COMFORTABLY, NO APPARENT DISTRESS, RESPIRATIONS REGULAR AND UNLABORED. CALL FORD REMIANS WITHIN REACH.
--- NOTE | 2020-01-04 04:23 | NUR ---
PT APPEARS TO BE SLEEPING COMFORTABLY, NO APPARENT DISTRESS, RESPIRATIONS REGULAR AND UNLABORED. CALL FORD REMIANS WITHIN REACH.
--- NOTE | 2020-01-04 05:19 | NUR ---
RECREATION PROGRAM SPECIALIST ROCKY AT BEDSIDE TO DRAW AM LABS
--- NOTE | 2020-01-04 05:38 | NUR ---
PT SITTING UP IN BED READING A BOOK. REPORTS A RESTFUL NIGHT AND FEELING LESS ANXIOUS. SCHEDULED MEDS ADMINISTERED. SEE E-MAR. BSC EMPTIED OF LARGE SOFT STOOL, MIXED W/ APPROXIMATELY 600ML URINE. FRESH ICE WATER PROVIDED PER PTS REQUEST. DENIES FURTHER NEEDS AT THIS TIME. CALL FORD IN REACH, AGREES TO CALL PRN.
[2020-01-04 05:50] LABS: HEMATOCRIT 36.8 % (37.0-47.0); HEMOGLOBIN 11.5 g/dl (12.0-16.0); IMMATURE GRANULOCYTES 0.8 % (0.0-5.0); MEAN CELL VOLUME 95.1 fL CALC (80.0-100.0); MEAN CORPUSCULAR HGB 29.7 pG CALC (26.0-32.0); MEAN CORPUSCULAR HGB CONC 31.3 g/dL CAL (32.0-36.0); NEUT# 14.82 thou/uL (2.00-7.15); RED BLOOD COUNT 3.87 mill/uL (4.20-5.60); RED CELL DISTRI WIDTH 14.6 % (11.5-15.5)
[2020-01-04 06:16] LABS: ANION GAP 14 (6-22 (CALC)); BUN 18 mg/dL (8-23); BUN/CREATININE RATIO 23 (12-20 (CALC)); CARBON DIOXIDE 26 mmol/l (22-30); CHLORIDE 97 mmol/l (95-108); CREATININE 0.8 mg/dL (0.5-1.0); GFR > 60 ML/MIN (>=60 (CALC)); GFR FOR AFR.AMER. > 60 ML/MIN (>=60 (CALC)); MAGNESIUM 2.4 mg/dL (1.6-2.3); SODIUM 133 mmol/l (137-146)
[2020-01-04 06:18] LABS: POTASSIUM 3.8 mmol/l (3.5-5.1)
--- NOTE | 2020-01-04 06:45 | NUR ---
REPORT RECEIVED FROM KULDIP TRENT CARE ASSUMED.
--- NOTE | 2020-01-04 07:20 | NUR ---
PT SITTING UP IN BED AWKAE. PT IS ALERT AND ORIENTED X3. SHIFT ASSESSMENT COMPLETED AT THIS TIME. IV PATENT X1. CALL LIGHT IN REACH. WILL CONTINUE TO MONITOR.
--- NOTE | 2020-01-04 08:18 | NUR ---
DR SERRANO AT BEDSIDE AT THIS TIME
[2020-01-04] MEDS ORDERED: AMOXICILLIN/CL875 MG PO (08:51)
--- NOTE | 2020-01-04 10:00 | NUR ---
DISCHARGE INSTRUCTIONS REVIEWED WITH PATIENT. PATIENT VERBALIZED UNDERSTANDING. IV DC'D TO LAC CATH TIP INTACT
[2020-01-04] MEDS ORDERED: PREDNISONE10 MG PO (10:18)
--- NOTE | 2020-01-04 10:50 | NUR ---
Discharge instructions given. Patient verbalizes understanding of same. Discharged in stable condition via Wheelchair to Home with family. All belongings sent with pt.
--- NOTE | 2020-01-11 13:52 | NUR ---
Pneumonia post discharge follow up call completed today, 01/11/20. Pt. states she is improving slowly. She saw her PCP on 01/17. Antibiotic medication was prescribed by PCP. Pt. has a second appt on 01/15. No fever, extreeme SOBor fatigue. Pt. states she does have occasional "Cold Chills". Pt. informed her PDCP of this symtom. No questions or needs at this time. Appreciative of call.
== END 2020-01-04 10:50 | disposition home or self-care (01) | DRG 177 ==
LOC: ED 01:57 → ED-I 03:30 → ED 03:43 → MS2 03:44 → ICU 03:44
PROVIDERS: Family Medicine; Internal Medicine; Nurse Practitioner Family; ADMIT Internal Medicine; ATTEND Internal Medicine
PROC: 0T9B70Z Drainage of Bladder with Drainage Device, Via Natural or Artificial Opening (ICD-10-PCS; principal; 2020-01-01)
PROC: 3E0234Z Introduction of Serum, Toxoid and Vaccine into Muscle, Percutaneous Approach (ICD-10-PCS; 2020-01-03)
DX: J69.0 Pneumonitis due to inhalation of food and vomit (principal); J96.01 Acute respiratory failure with hypoxia; J44.1 Chronic obstructive pulmonary disease with (acute) exacerbation; R78.81 Bacteremia; J38.00 Paralysis of vocal cords and larynx, unspecified; I10 Essential (primary) hypertension; K21.9 Gastro-esophageal reflux disease without esophagitis; E87.6 Hypokalemia; F41.9 Anxiety disorder, unspecified; Z23 Encounter for immunization; Z98.890 Other specified postprocedural states; Z20.828 Contact with and (suspected) exposure to other viral communicable diseases

== ENCOUNTER 2020-02-03 15:04 | Inpatient (IN) | payer MEDICARE ==
[~2020-02-03] VITALS: Ht 162.6 cm; Wt 79.5 kg
[~2020-02-03 15:04] MED LIST changes: +AMOXICILLIN/CL875 MG PO; +PREDNISONE10 MG PO; +VITAMIN D2000 UNI2 PO
--- NOTE | 2020-02-03 15:06 | NUR ---
Pt to room # 15 via W/C for bedside triage
[2020-02-03 15:50] LABS: HEMATOCRIT 35.5 % (37.0-47.0); IMMATURE GRANULOCYTES 0.2 % (0.0-5.0); MEAN CELL VOLUME 97.3 fL CALC (80.0-100.0); MEAN CORPUSCULAR HGB 30.1 pG CALC (26.0-32.0); NEUT# 5.98 thou/uL (2.00-7.15); RED BLOOD COUNT 3.65 mill/uL (4.20-5.60); RED CELL DISTRI WIDTH 15.6 % (11.5-15.5)
[2020-02-03 16:10] LABS: ALBUMIN 4.3 g/dL (3.2-5.0); ALKALINE PHOSPHATASE 111 u/l (38-126); BILIRUBIN, TOTAL 1.1 mg/dL (0.0-1.4); BUN 9 mg/dL (8-23); BUN/CREATININE RATIO 17 (12-20 (CALC)); CHLORIDE 103 mmol/l (95-108); CREATININE 0.6 mg/dL (0.5-1.0); GFR > 60 ML/MIN (>=60 (CALC)); GFR FOR AFR.AMER. > 60 ML/MIN (>=60 (CALC)); POTASSIUM 3.7 mmol/l (3.5-5.1); SGOT/AST 29 u/l (9-36); SODIUM 133 mmol/l (137-146); TOTAL PROTEIN 7.2 g/dL (6.3-8.2)
[2020-02-03 16:11] LABS: ANION GAP 14 (6-22 (CALC)); CARBON DIOXIDE 20 mmol/l (22-30)
[2020-02-03 16:12] LABS: ACT PARTIAL THROMBO TIME 28.9 SECONDS (20.0-32.5); PROTHROMBIN TIME 10.4 SECONDS (9.0-12.5)
[2020-02-03 16:35] LABS: URINE BILIRUBIN - DIPSTICK NEGATIVE (NEGATIVE); URINE BLOOD DIPSTICK MODERATE (NEGATIVE); URINE COLOR YELLOW; URINE GLUCOSE - DIPSTICK NEGATIVE (NEGATIVE); URINE KETONE NEGATIVE (NEGATIVE); URINE LEUK ESTERASE TRACE (NEGATIVE); URINE NITRITE - DIPSTICK NEGATIVE (Negative); URINE PROTEIN - DIPSTICK TRACE mg/dL (NEG-TRACE); URINE SPECIFIC GRAVITY 1.015; URINE UROBILINOGEN - DIPSTICK 0.2 E.U./dL (0.2)
[2020-02-03 16:36] LABS: URINE EPITHELIAL CELLS FEW EPI/hpf (0-FEW); URINE WBC 0-2 WBC/hpf (0-5)
--- NOTE | 2020-02-03 20:00 | NUR ---
TO FLOOR VIA STRETCHER WITH MONITOR AND PUMPS/ANTIBIOTICS/CARDIZEM INFUSING. SEE DOWN TIME NURSES NOTED. PT IS A/O. NAD. NO C/O.
--- NOTE | 2020-02-03 20:10 | NUR ---
RECEIVED FROM ER VIA STRETCHER INTO ICU 3. PATIENT IS ALERT AND ORIENTED X3. AMBULATED FROM STRETCHER TO BSC TO VOID AND THEN TO BED. STANCE AND GAIT STABLE. PLACED ON ANALYST MICROBIOLOGY LAB SHOWING AFIB, HR 90'S. VSS. RESP NON-LABORED, RA O2 SAT 96% BREATH SOUNDS CLEAR. TRACE EDEMA NOTED OF LEFT PEDAL AREA AND LEFT ANKLE. IV IN RAC, SITE BENIGN, CARDIZEM GTT INFUSING AT 10 MG/HR. LAC SITE SALINE LOCKED. ORIENTES TO SURROUNDING. REVIEWED USE OF CALL FORD AND BED CONTROLS. DISCUSSED PLAN OF CARE. DENIES NEEDS AT THIS TIME. CALL FORD IN REACH.
[2020-02-03 20:15] VITALS: BP 128/59
[2020-02-03 20:30] VITALS: BP 111/61
[2020-02-03 20:45] VITALS: BP 117/55
[2020-02-03 21:00] VITALS: BP 99/76
--- NOTE | 2020-02-03 21:30 | NUR ---
HEPARIN BOLUS GIVEN AND HEPARIN GTT STARTED ORDERED, INFUSING TO LAC SITE.
[2020-02-03 22:00] VITALS: BP 114/59
[2020-02-03 23:00] VITALS: BP 119/73
--- NOTE | 2020-02-03 23:00 | NUR ---
PATIENT SLEEPING SOUNDLY, O2 SAT 88-89% WHEN ASLEEP. O2 APPLIED AT 2 L NC, O2 SAT UP TO 94%
[2020-02-04] VITALS (33 sets, daily range): BP systolic 114–161; BP diastolic 61–87
--- NOTE | 2020-02-04 | NUR ---
NO CHANGES TO REPORT AT THIS TIME. VSS. REMAINS IN AFIB ON THE MONITOR.
--- NOTE | 2020-02-04 02:00 | NUR ---
RESTING WITHOUT COMPLAINTS. VSS. AFIB ON MONITOR.
[2020-02-04 03:53] LABS: HEMATOCRIT 32.5 % (37.0-47.0); HEMOGLOBIN 9.9 g/dl (12.0-16.0); IMMATURE GRANULOCYTES 0.5 % (0.0-5.0); MEAN CELL VOLUME 97.3 fL CALC (80.0-100.0); MEAN CORPUSCULAR HGB 29.6 pG CALC (26.0-32.0); MEAN CORPUSCULAR HGB CONC 30.5 g/dL CAL (32.0-36.0); NEUT# 6.67 thou/uL (2.00-7.15); RED BLOOD COUNT 3.34 mill/uL (4.20-5.60); RED CELL DISTRI WIDTH 15.7 % (11.5-15.5)
--- NOTE | 2020-02-04 04:00 | NUR ---
PTT RESULTS THERAPEUTIC. NEXT PTT DUE AT 0900. PATIENT RESTING WITH EYES CLOSED. RESP NON-LABORED. VSS. CARDIZEM GTT CONTINUES AT 10 MG/HR INTO RAC IV SITE. HEPARIN GTT CONTINUES AT 950 UNITS/HR INTO LAC SITE. AFIB ON MONITOR WITH CONTROLLED VENTRICULAR RESPONSE. HR 80'S.
[2020-02-04 04:29] LABS: ANION GAP 13 (6-22 (CALC)); BUN 9 mg/dL (8-23); BUN/CREATININE RATIO 15 (12-20 (CALC)); CARBON DIOXIDE 21 mmol/l (22-30); CHLORIDE 103 mmol/l (95-108); CREATININE 0.6 mg/dL (0.5-1.0); GFR > 60 ML/MIN (>=60 (CALC)); GFR FOR AFR.AMER. > 60 ML/MIN (>=60 (CALC)); POTASSIUM 3.7 mmol/l (3.5-5.1); SODIUM 133 mmol/l (137-146)
--- NOTE | 2020-02-04 07:10 | NUR ---
pt awake in bed; no apparent distress noted; pt offers no complaints; assessment completed at this time; pt alert and oriented; denies pain/ discomfort; no n/v noted; resp even and unlabored; lungs clear/ coarse upper posterior; no cough noted; o2 per nc; hr irreg; pulses present; trace edema noted to left pedal; afib on monitor; bilat knee high chela hose intact; abd soft with bs present; no bm noted per check writer; no urine to inspect at this time; bsc; #22 patent to lac with heparin gtt infusing at 950 unts/hr; #20 patent to rac with cardizem gtt infusing at 10mg/hr; no redness or edema noted at sites; plan of care/ am meds explained; call light within reach; will continue to monitor
--- NOTE | 2020-02-04 08:25 | NUR ---
Dr Garcia present at bedside to assess pt and discuss plan of care
--- NOTE | 2020-02-04 10:10 | NUR ---
awake in bed; no apparent distress noted; pt offers no complaints; iv intact and patent; cardizem gtt and heparin gtt infusing without complication; blackish appearing stool noted to bsc; pt admits to taking iron pills; call light within reach; will continue to monitor
--- NOTE | 2020-02-04 11:01 | NUR ---
resting in bed with eyes closed; easily arousable; cardizem gtt titrated to 8mg/hr; afib 70-80 on monitor
--- NOTE | 2020-02-04 12:15 | NUR ---
awake in bed; no apparent distress noted; pt offer no complaints; iv intact and patent; no redness or edema noted at site; afib on monitor; cardizem gtt being weaned; heparin gtt cont at 950 units/hr; call light within reach; will continue to monitor
--- NOTE | 2020-02-04 14:00 | NUR ---
awake up to bsc per self; lg stool incont noted; pericare per pt; mesh panties with pad provided; complete linen change; sob with exertion noted; afib on monitor; o2 per nc; iv intact; heparin gtt cont at 950 units/hr; cardizem gtt weaned; call light within reach; will continue to monitor
--- NOTE | 2020-02-04 16:10 | NUR ---
awake in bed reading a book; no apparent distress noted; pt offers no complaints; iv intact; no redness or edema noted at sites; afib on monitor; call light within reach; will continue to monitor
--- NOTE | 2020-02-04 18:08 | NUR ---
awake in bed eating dinner; no apparent distress noted; pt offers no complaints; iv intact and patent; heparin gtt cont at 950 units/hr; no redness or edema noted at site; afib on monitor; o2 per nc; call light within reach
--- NOTE | 2020-02-04 18:23 | NUR ---
PT WITH COMPLAINTS OF MIDSTERNAL CHEST PAIN RATING 5/10; PT STATES BECAUSE I'VE BEEN IN THE BED SO LONG; PT INFORMED THAT SHE IS NOT CONFINED TO THE BED AND MAY GET UP TO CHAIR IF SHE WISHES; AFIB ON MONITOR; PT REFUSED DINNER; WILL NOTIFY ;
--- NOTE | 2020-02-04 18:40 | NUR ---
Dr Garcia called per financial writer; midsternal chest pain reported to MD; pt also with complaints of gas; vitals reviewed; MD aware cardizem gtt weaned; orders received and on chart
--- NOTE | 2020-02-04 19:28 | NUR ---
ASSESSMENT COMPLETED. IV SITES PATENT. HEPARIN GTT INFUSING @950 UNITS/HR PER PROTOCOL. PT. CONTINUES TO C/O CHEST PAIN AND MEDICATED WITH ORDERD MAALOX; WILL REASSESS. PT. REPORTS SHE THINKS IT IS MORE ANXIETY RELATED THOUGH. PT. REQUESTING SLEEPING AIDE; WILL CALL BOND UNDERWRITER MD FOR FURTHER ORDERS. O2 INFUSING PER NC @2LITERS/MIN. PT. DENIES FURTHER NEEDS. CALL LIGHT IS IN REACH.
--- NOTE | 2020-02-04 20:06 | NUR ---
NOTIFIED DR. SERRANO OF PT. CONTINUING TO C/O CHEST ACHING AND REPORTING SHE BELIEVES IT IS R/T ANXIETY AND RECENTLY GIVING MAALOX AND THAT TROPONIN IS NEGATIVE. ALSO NOTIFIED HIM OF PT. REQUESTS FOR SLEEPING AIDE. NEW ORDERS RECEIVED FOR FAN WILKERSON; WILL CARRY THIS ORDER OUT.
--- NOTE | 2020-02-04 20:57 | NUR ---
NOTIFIED DR. SERRANO WITH NO CHANGE IN PT'S REPORTS OF CP; NEW ORDERS RECIEVED AND TO BE CARRIED OUT.
--- NOTE | 2020-02-04 21:25 | NUR ---
[id number]- PT. STARTED WITH CP 8/10 POST X3 DOSES OF NITRO Q5 MIN PT. REPORTS IT ALMOST COMPLETELY GONE ; RATING IT AT A 0.5/10. WILL CONTINUE TO MONITOR. DENIES FURTHER NEEDS. VSS.
--- NOTE | 2020-02-04 23:32 | NUR ---
VSS. NO DISTRESS NOTED;DENIES NEEDS/PAIN. SCHED [place] PEREZ, CALL LIGHT IS IN REACH.
[2020-02-05] VITALS (19 sets, daily range): BP systolic 82–161; BP diastolic 63–91
--- NOTE | 2020-02-05 03:30 | NUR ---
RESTING IN BED WITH EYES CLOSED; RESP. EVEN AND UNLABORED. CALL LIGHT IS IN REACH. HR REMAINS FLUCTUATING 90'S-110'S. WILL CONTINUE TO MONITOR.
--- NOTE | 2020-02-05 05:15 | NUR ---
VSS. NO DISTRESS NOTED; DENIES NEEDS/PAIN. FRESH WATER GIVEN. ENCOURAGED TO CALL FOR ANY NEEDS. CALL LIGHT IS IN REACH. WILL CONTINUE TO MONITOR.
--- NOTE | 2020-02-05 05:30 | NUR ---
PT. REPORTS O2 IS DRING OUT HER NOSTRILS AND O2 REMOVED AT THIS TIME. SPO2 WNL.
[2020-02-05 06:04] LABS: ANION GAP 13 (6-22 (CALC)); BUN 8 mg/dL (8-23); BUN/CREATININE RATIO 15 (12-20 (CALC)); CARBON DIOXIDE 21 mmol/l (22-30); CHLORIDE 103 mmol/l (95-108); CREATININE 0.5 mg/dL (0.5-1.0); GFR > 60 ML/MIN (>=60 (CALC)); GFR FOR AFR.AMER. > 60 ML/MIN (>=60 (CALC)); MAGNESIUM 2.2 mg/dL (1.6-2.3); POTASSIUM 3.7 mmol/l (3.5-5.1); SODIUM 132 mmol/l (137-146)
[2020-02-05 06:16] LABS: HEMATOCRIT 33.8 % (37.0-47.0); HEMOGLOBIN 10.4 g/dl (12.0-16.0); IMMATURE GRANULOCYTES 0.3 % (0.0-5.0); MEAN CELL VOLUME 99.1 fL CALC (80.0-100.0); MEAN CORPUSCULAR HGB 30.5 pG CALC (26.0-32.0); MEAN CORPUSCULAR HGB CONC 30.8 g/dL CAL (32.0-36.0); NEUT# 7.17 thou/uL (2.00-7.15); RED BLOOD COUNT 3.41 mill/uL (4.20-5.60); RED CELL DISTRI WIDTH 15.6 % (11.5-15.5)
--- NOTE | 2020-02-05 07:00 | NUR ---
pt awake in bed; no apparent distress noted; pt offers no complaints; assessment completed at this time; pt alert and oriented; denies pain/ chest pain at current; no n/v noted; resp even and unlabored; lungs clear/ diminished bases; skin color wnl; o2 per nc; no cough noted; hr irreg; strong pulses; trace edema noted to lle; afib on monitor; chela hose off per pt request; pt voiding/ unable to assess urine d/t mized with stool; lg soft dk brown bm noted; bsc; #20 flushed and patent to rac/ saline locked; #22 patent to lac with heparin gtt infusing at 950 units/hr; no redness or edema noted at site; plan of care/ am meds explained; call light within reach; will continue to monitor
--- NOTE | 2020-02-05 08:02 | NUR ---
awake in bed eating breakfast; no apparent distress noted; pt offers no complaints; iv intact and patent; heparin gtt infusing without complication; o2 per nc; call light within reach; will continue to monitor
--- NOTE | 2020-02-05 09:00 | NUR ---
Dr Garcia present at bedside to assess pt and discuss plan of care
--- NOTE | 2020-02-05 10:03 | NUR ---
awake in bed; no apparent distress noted; afib 110s on monitor; call light within reach; will continue to monitor
--- NOTE | 2020-02-05 12:10 | NUR ---
awake in bed esting lunch; no apparent distress noted; pt offers no complaints; iv intact and patent; ra; afib on monitor; call light within reach; will continue to monitor
--- NOTE | 2020-02-05 14:00 | NUR ---
awake sitting on side of bed eating muffins (provided from home); no apparent distress noted; ra; afib on monitor; iv intact and patent; heparin gtt cont at 950 units/hr; call light within reach; will continue to monitor
--- NOTE | 2020-02-05 16:02 | NUR ---
awake in bed; offers no complaints; no apparent distress noted; iv intact and patent; heparin gtt cont at 950 units/hr; ra; call light within reach; will continue to monitor
--- NOTE | 2020-02-05 18:15 | NUR ---
awake in bed reading a book; no apparent distress noted; pt offers no complaints; iv intact and patent; no redness or edema noted at site; afib on monitor; ra; call light within reach
--- NOTE | 2020-02-05 19:00 | NUR ---
REPORT RECEIVED FROM Skyler OCASIO RN, CARE OF PT ASSUMED AT THIS TIME.
--- NOTE | 2020-02-05 19:45 | NUR ---
PT SITTING UP IN BED, READING A BOOK. APPEARS COMFORTABLE AND IN NO APPARENT DISTRESS. RESPIRATIONS REGULAR AND UNLABORED. PHYSICAL ASSESMENT COMPLETE. PLAN OF CARE REVIEWED. PT VERBALIZES UNDERSTANDING AND DENIES QUESTIONS AT THIS TIME. PT DENIES FURTHER NEEDS WHEN ASKED. CALL FORD WITHIN REACH, AGREES TO CALL PRN.
--- NOTE | 2020-02-05 21:20 | NUR ---
SCHEDULED MEDICATIONS ADMINISTERED. PRN SONATA AND XANAX ADMINISTERED PER PT REQUEST FOR C/O RESTLESSNESS/ TO HELP WITH SLEEP. PRN TYLENOL ADMINISTERED FOR C/O MILD HEADACHE. HEPARIN GTT INFUSING @19ml/H. SEE E-MAR.
--- NOTE | 2020-02-05 23:45 | NUR ---
PT APPEARS TO BE SLEEPING COMFORTABLY. EYES CLOSED. NO APPARENT DISTRESS. RESPIRATIONS REGULAR AND UNLABORED. CALL FORD REMAINS WITHIN REACH.
[2020-02-06] VITALS (11 sets, daily range): BP systolic 116–158; BP diastolic 65–88
--- NOTE | 2020-02-06 01:39 | NUR ---
PT APPEARS TO BE SLEEPING COMFORTABLY. EYES CLOSED. NO APPARENT DISTRESS. RESPIRATIONS REGULAR AND UNLABORED. CALL FORD REMAINS WITHIN REACH.
--- NOTE | 2020-02-06 05:00 | NUR ---
CLINICAL DATA ASSISTANT IN ROOM TO DRAW LABS. EMPTIED 200ML CONCENTRATED YELLOW URINE OUT OF PTS COMMODE. PT DENIES FURTHER NEEDS AT THIS TIME, CALL FORD WITHIN REACH, AGREES TO CALL PRN.
[2020-02-06 05:27] LABS: HEMATOCRIT 33.8 % (37.0-47.0); HEMOGLOBIN 10.3 g/dl (12.0-16.0); IMMATURE GRANULOCYTES 0.3 % (0.0-5.0); MEAN CELL VOLUME 98.8 fL CALC (80.0-100.0); MEAN CORPUSCULAR HGB 30.1 pG CALC (26.0-32.0); MEAN CORPUSCULAR HGB CONC 30.5 g/dL CAL (32.0-36.0); NEUT# 7.03 thou/uL (2.00-7.15); RED BLOOD COUNT 3.42 mill/uL (4.20-5.60); RED CELL DISTRI WIDTH 15.5 % (11.5-15.5)
[2020-02-06 05:49] LABS: ANION GAP 10 (6-22 (CALC)); BUN 9 mg/dL (8-23); BUN/CREATININE RATIO 17 (12-20 (CALC)); CARBON DIOXIDE 24 mmol/l (22-30); CHLORIDE 102 mmol/l (95-108); CREATININE 0.5 mg/dL (0.5-1.0); GFR > 60 ML/MIN (>=60 (CALC)); GFR FOR AFR.AMER. > 60 ML/MIN (>=60 (CALC)); MAGNESIUM 2.2 mg/dL (1.6-2.3); POTASSIUM 4.2 mmol/l (3.5-5.1); SODIUM 132 mmol/l (137-146)
--- NOTE | 2020-02-06 06:19 | NUR ---
PTT 65.5, NO CHANGES TO HEPARIN GTT PER HEPARIN GTT ALGORITHM, PTT ORDERED FOR 02/07/20 AM.
--- NOTE | 2020-02-06 07:25 | NUR ---
pt awake in bed; no apparent distress noted; pt offers no complaints; assessment completed at this time; pt alert and oriented; denies pain/ chest pain; no n/v noted; resp even and unlabored; lungs clear with post faint exp wheeze noted; skin color wnl; o2 per nc at 2L; hr irreg; strong pulses; trace pedal edema noted; afib on monitor; abd soft with bs present; no bm noted per screenplay writer; bsc; pt voiding without complication; no urine to inspect at this time; #22 patent to lac with heparin gtt infusing at 950 units/hr; #20 flushed and patent to rac; no redness or edema noted at site; plan of care/ am meds explained; call light within reach; will continue to monitor
--- NOTE | 2020-02-06 08:05 | NUR ---
awake in bed; no apparent distress noted; eating breakfast; o2 per nc; afib on monitor; call light within reach; will continue to monitor
--- NOTE | 2020-02-06 09:24 | NUR ---
Dr Garcia present at bedside to assess pt and discuss plan of care
--- NOTE | 2020-02-06 10:09 | NUR ---
awake in bed reading a book; no apparent distress noted; afib on monitor; iv intact and patent; heparin gtt cont; call light within reach; will continue to monitor
--- NOTE | 2020-02-06 10:34 | NUR ---
case management Jer Louie called per life insurance underwriter in regards to obtaining Eliquis for pt
[2020-02-06] MEDS ORDERED: ELIQUIS5 MG PO (10:40)
[2020-02-06] MEDS ORDERED: TOPROL XL50 MG PO (10:42)
[2020-02-06] MEDS ORDERED: AMOXICILLIN/CL875 MG PO (10:48)
--- NOTE | 2020-02-06 12:01 | NUR ---
awake; up per self to bsc; steady gait; no apparent distress noted; afib on monitor; iv intact; heparin gtt cont at 950 units/hr; ra; pt offers no complaints; call light within reach; will continue to monitor
--- NOTE | 2020-02-06 14:00 | NUR ---
awake in bed; no apparent distress noted; pt offers no complaints; case management working on obtaining Eliquis (free or discounted caballero); iv intact and patent; no redness or edema noted at sites; afib on monitor; ra; call light within reach; will continue to monitor
--- NOTE | 2020-02-06 14:26 | NUR ---
Dr Garcia updated on pt status/ Eliquis; staff to proceed with discharge
--- NOTE | 2020-02-06 14:49 | NUR ---
discharge instructions reviewed in [facility] per Shin Aleman; will continue to monitor
--- NOTE | 2020-02-06 15:03 | NUR ---
Discharge instructions given. Patient verbalizes understanding of same. Discharged in stable condition via Wheelchair to Home with family. All belongings sent with pt.
== END 2020-02-06 15:03 | disposition home or self-care (01) | DRG 308 ==
LOC: ED 15:04 → ED-I 18:10 → ED 18:26 → ICU 18:27
PROVIDERS: Student in an Organized Health Care Education/Training Program; ADMIT Internal Medicine; ATTEND Internal Medicine
DX: I48.91 Unspecified atrial fibrillation (principal); J69.0 Pneumonitis due to inhalation of food and vomit; R78.81 Bacteremia; J38.01 Paralysis of vocal cords and larynx, unilateral; I10 Essential (primary) hypertension; J44.9 Chronic obstructive pulmonary disease, unspecified; K21.9 Gastro-esophageal reflux disease without esophagitis; Z87.01 Personal history of pneumonia (recurrent); Z20.828 Contact with and (suspected) exposure to other viral communicable diseases
CPT/HCPCS: J1644; Q9967

== ENCOUNTER 2020-04-26 21:11 | Observation (INO) | payer MEDICARE ==
[~2020-04-26] VITALS: Ht 162.6 cm; Wt 73.0 kg
[~2020-04-26 21:11] MED LIST changes: +ELIQUIS5 MG PO; +TOPROL XL50 MG PO
--- NOTE | 2020-04-26 21:18 | NUR ---
BY WC TO ROOM
[2020-04-26 22:18] LABS: IMMATURE GRANULOCYTES 0.3 % (0.0-5.0); MEAN CORPUSCULAR HGB 30.8 pG CALC (26.0-32.0); MEAN CORPUSCULAR HGB CONC 33.7 g/dL CAL (32.0-36.0); NEUT# 8.55 thou/uL (2.00-7.15); RED BLOOD COUNT 3.25 mill/uL (4.20-5.60); RED CELL DISTRI WIDTH 15.2 % (11.5-15.5)
[2020-04-26 22:19] LABS: HEMATOCRIT 29.7 % (37.0-47.0); MEAN CELL VOLUME 91.4 fL CALC (80.0-100.0)
[2020-04-26 22:30] LABS: TOTAL PROTEIN 6.7 g/dL (6.3-8.2)
[2020-04-26 22:38] LABS: BILIRUBIN, TOTAL 0.5 mg/dL (0.0-1.4); CREATININE 2.4 mg/dL (0.5-1.0); POTASSIUM 3.8 mmol/l (3.5-5.1)
--- NOTE | 2020-04-26 23:19 | NUR ---
HAND OFF REPORT RECEIVED FROM GELACIO
[2020-04-27] VITALS (9 sets, daily range): BP systolic 83–101; BP diastolic 31–59
--- NOTE | 2020-04-27 00:15 | NUR ---
PATIENT ABLE TO AMBULATE TO THEE BATHROOM INDEPENDENTLY TO PROVIDE A URINE SAMPLE. NO C/O OF DIZZINESS OR SOB.
[2020-04-27] MEDS ORDERED: LASIX 40 MG TAB40 MG PO (01:37)
--- NOTE | 2020-04-27 01:39 | NUR ---
PATIENT RESTING QUIETLY, NO C/O PAIN OR DISCOMFORT, NO S/S OF IDSTRESS NOTED, RESPIRATIONS EVEN AND UNLABORED, AWAITING INPATIENT BED.
[2020-04-27 01:53] LABS: URINE BILIRUBIN - DIPSTICK NEGATIVE (NEGATIVE); URINE COLOR YELLOW; URINE GLUCOSE - DIPSTICK NEGATIVE (NEGATIVE); URINE KETONE NEGATIVE (NEGATIVE); URINE NITRITE - DIPSTICK NEGATIVE (Negative); URINE PH 5.5 (4.5-8.0); URINE PROTEIN - DIPSTICK NEGATIVE (NEG-TRACE); URINE SPECIFIC GRAVITY 1.015; URINE UROBILINOGEN - DIPSTICK 0.2 E.U./dL (0.2)
[2020-04-27 02:02] LABS: URINE LEUK ESTERASE SMALL (NEGATIVE)
[2020-04-27 02:04] LABS: URINE BLOOD DIPSTICK NEGATIVE (NEGATIVE)
[2020-04-27 02:05] LABS: URINE EPITHELIAL CELLS MODERATE EPI/hpf (0-FEW)
[2020-04-27 02:06] LABS: URINE BACTERIA MODERATE hpf
--- NOTE | 2020-04-27 02:30 | NUR ---
PATIENT AWAITING DIAGNOSTIC RESULTS AND DISPOSITION, NO C/O PAIN OR DISCOMFORT, NO S/S OF DISTRESS NOTED, RESPIRATIONS EVEN AND UNLABORED.
--- NOTE | 2020-04-27 03:30 | NUR ---
PATIENT RESTING WITH EYES CLOSED RESPIRATIONS EVEN AND UNLABORED, AWAITING INPATIENT BED ASSIGNMENT, LIGHTS DIMMED FOR COMFORT, PO FLUIDS GIVEN.
--- NOTE | 2020-04-27 04:34 | NUR ---
PATIENT RESTING QUIETLY WITH EYES CLOSED , RESPIRATIONS EVEN AND UNLABORED, NO C/O PAIN OR DISCOMFORT, NO S/S OF IDSTRESS NOTED, AWAITING INPATIENT BED ASSIGNMENT.
--- NOTE | 2020-04-27 05:07 | NUR ---
PATIENT AWAKE AND ALERT, AMBULATORY WITHOUT ASSISTANCE TO THE BATHROOM, NO REPORT PAIN OR DIZZINESS.
--- NOTE | 2020-04-27 07:03 | NUR ---
HAND OFF REPORT GIVEN TO THA FOR INPATIENT ROOM ASSIGNMENT.
--- NOTE | 2020-04-27 08:30 | NUR ---
PT TRANSPORTED TO [facility] SURG STABLE AND IN NO DISTRESS. NURSE CALLED FOR UPDATE. PT CARE ASSUMED TO THA. DELAY OF TRANSPORT BECAUSE OF CRITICAL PT
--- NOTE | 2020-04-27 08:35 | NUR ---
PT ARRIVED FROM ER VIA WC WITH STAFF. IMMEDIATELY WENT TO THE BATHROOM.
--- NOTE | 2020-04-27 09:22 | NUR ---
ASSESSMENT IS COMPLETED: IV SITE IS FREE FROM REDNESS OR EDEMA. HR IS REG, PULSES ARE STRONG X4, ABD IS SOFT WITH ACTIVE BS. BREATH SOUNDS ARE CLEAR,BILATERALLY. TELE MONITOR IN PLACE. CONTINUE TO OSBERVE AND MONITOR.
[2020-04-27 09:27] LABS: HEMATOCRIT 33.1 % (37.0-47.0); HEMOGLOBIN 10.7 g/dl (12.0-16.0); IMMATURE GRANULOCYTES 0.2 % (0.0-5.0); MEAN CELL VOLUME 94.3 fL CALC (80.0-100.0); MEAN CORPUSCULAR HGB 30.5 pG CALC (26.0-32.0); MEAN CORPUSCULAR HGB CONC 32.3 g/dL CAL (32.0-36.0); NEUT# 6.75 thou/uL (2.00-7.15); RED BLOOD COUNT 3.51 mill/uL (4.20-5.60); RED CELL DISTRI WIDTH 15.3 % (11.5-15.5)
[2020-04-27 10:05] LABS: CREATININE 1.7 mg/dL (0.5-1.0); POTASSIUM 4.2 mmol/l (3.5-5.1)
--- NOTE | 2020-04-27 11:00 | NUR ---
BP ORTHOS WERE CHECKED AND KELL QUINN IS AWARE.
--- NOTE | 2020-04-27 12:00 | NUR ---
PT IS RELAXING IN BED IWTH NO DISTRESS NOTED. IV SITE IS FREE FROM REDNESS OR EDEMA.
--- NOTE | 2020-04-27 16:02 | NUR ---
PT IS READING A BOOK WITH NO DISTRESS NOTED. IV SITE IS FREE FROM REDNESS OR EDEMA.
--- NOTE | 2020-04-27 19:05 | NUR ---
RECEIVED REPORT FROM DAY SHIFT, PT IS RESTING IN BED WATCHING TV, IN SEMI FOWLERS POSITION UPON ENTERING ROOM, INTRODUCED SELF TO PT AND POC DISCUSSED. ASSESSMENT COMPLETE AND VS OBTAINED. PT IS A&O X 3. PT ON ROOMAIR. RESP ARE EVEN AND NON-LABORED, SO S/SX OF DISTRESS OBSERVED AT THIS TIME. NORMAL S1 & S2 HEART WITH REGULAR RATE AND RHYTHM, TELE IN PLACE- SHOWING SR. LAST BM REPORTED 04/26. BOWEL SOUNDS ACTIVE X 4 QUADS. RADIAL & PEDAL PULSES ARE PRESENT, STRONG WITH CAP REFILL < 3 SECS. #20 PIV IN RAC W/ NS @ 125ML/HR PER ORDERS. IV SITE IS PATENT, CLEAN, DRY, AND INTACT. PT EXPRESSED NO COMPLAINTS, QUESTIONS, OR CONCERNS AT THIS TIME. ALL STANDARD & SAFETY PRECATIONS IN PLACE. BED IN LOWESR POSITION WITH WHEELS LOCKED AND SIDE RAILS UP X2, AND CALL LIGHT WITHIN REACH, PT INSTRUCTED TO CALL FOR ASSIST OR ANY NEEDS. WILL CONITINUE TO MONITOR.
[2020-04-28] VITALS: BP 103/61
--- NOTE | 2020-04-28 | NUR ---
PT IS IN BED SLEEPING, RESP EVEN AND NON-LABORED. NO S/SX OF DISTRESS OR DISCOMFORT OBSERVED AT THIS TIME, WILL CONTINUE TO MONITOR FOR COMFORT AND SAFETY.
[2020-04-28 04:35] VITALS: BP 105/55
[2020-04-28 05:34] LABS: HEMATOCRIT 28.9 % (37.0-47.0); HEMOGLOBIN 9.5 g/dl (12.0-16.0); IMMATURE GRANULOCYTES 0.2 % (0.0-5.0); MEAN CELL VOLUME 92.9 fL CALC (80.0-100.0); MEAN CORPUSCULAR HGB 30.5 pG CALC (26.0-32.0); MEAN CORPUSCULAR HGB CONC 32.9 g/dL CAL (32.0-36.0); NEUT# 5.41 thou/uL (2.00-7.15); RED BLOOD COUNT 3.11 mill/uL (4.20-5.60); RED CELL DISTRI WIDTH 15.4 % (11.5-15.5)
[2020-04-28 05:47] LABS: ALKALINE PHOSPHATASE 67 u/l (38-126); BILIRUBIN, TOTAL 0.5 mg/dL (0.0-1.4); BUN 26 mg/dL (8-23); BUN/CREATININE RATIO 29 (12-20 (CALC)); CHLORIDE 98 mmol/l (95-108); CREATININE 0.9 mg/dL (0.5-1.0); GFR > 60 ML/MIN (>=60 (CALC)); GFR FOR AFR.AMER. > 60 ML/MIN (>=60 (CALC)); POTASSIUM 3.8 mmol/l (3.5-5.1); SGOT/AST 22 u/l (9-36); SODIUM 130 mmol/l (137-146)
[2020-04-28 05:53] LABS: ALBUMIN 2.9 g/dL (3.2-5.0); ANION GAP 7 (6-22 (CALC)); CARBON DIOXIDE 29 mmol/l (22-30); TOTAL PROTEIN 5.1 g/dL (6.3-8.2)
[2020-04-28 07:01] VITALS: BP 103/69
--- NOTE | 2020-04-28 08:40 | NUR ---
REPORT WAS RECEIVED FROM KEVIN. PATIENT IS RESTING IN BED. ASSESSMENT DONE. PATIENT IS A&O X3. PATIENT DENIES PAIN AT THIS TIME. TELE#[id number]. PATIENT DENIES DIZZNIESS. SAFETY PRECAUTIONS REINFORCED. IVF INFUISNG WELL. PATIENT STATED SHE WANTS TO TAKE A SHOWER LATER. PATIENT DENIES ANY OTHER NEEDS AT THIS TIME. CALL LIGHT IN REACH.
[2020-04-28 11:00] VITALS: BP 103/59
--- NOTE | 2020-04-28 12:30 | NUR ---
Discharge instructions given. Patient verbalizes understanding of same. Discharged in stable condition via Wheelchair to Home with staff. All belongings sent with pt.
== END 2020-04-28 12:30 | disposition home or self-care (01) ==
LOC: ED 21:11 → ED-I 04-27 01:23 → ED 04-27 02:30 → ED-I 04-27 02:31 → MS2 04-27 07:14
PROVIDERS: Emergency Medicine; Nurse Practitioner; ADMIT Internal Medicine; ATTEND Internal Medicine
DX: R55 Syncope and collapse (principal); E87.1 Hypo-osmolality and hyponatremia; N28.9 Disorder of kidney and ureter, unspecified; E86.0 Dehydration; I11.0 Hypertensive heart disease with heart failure; I50.9 Heart failure, unspecified; J43.9 Emphysema, unspecified; I48.91 Unspecified atrial fibrillation; I25.10 Atherosclerotic heart disease of native coronary artery without angina pectoris; F41.9 Anxiety disorder, unspecified; K21.9 Gastro-esophageal reflux disease without esophagitis; F32.9 Major depressive disorder, single episode, unspecified; Z23 Encounter for immunization; Z79.01 Long term (current) use of anticoagulants; Z20.828 Contact with and (suspected) exposure to other viral communicable diseases

== ENCOUNTER 2020-06-02 16:51 | Inpatient (IN) | payer MEDICARE ==
[~2020-06-02] VITALS: Ht 162.6 cm; Wt 77.0 kg
[~2020-06-02 16:51] MED LIST changes: +LASIX 40 MG TAB40 MG PO
[2020-06-02 17:26] LABS: HEMATOCRIT 28.7 % (37.0-47.0); HEMOGLOBIN 9.3 g/dl (12.0-16.0); IMMATURE GRANULOCYTES 0.5 % (0.0-5.0); MEAN CELL VOLUME 97.3 fL CALC (80.0-100.0); MEAN CORPUSCULAR HGB 31.5 pG CALC (26.0-32.0); MEAN CORPUSCULAR HGB CONC 32.4 g/dL CAL (32.0-36.0); NEUT# 12.94 thou/uL (2.00-7.15); RED BLOOD COUNT 2.95 mill/uL (4.20-5.60); RED CELL DISTRI WIDTH 15.8 % (11.5-15.5)
[2020-06-02 17:36] LABS: BUN 34 mg/dL (8-23); BUN/CREATININE RATIO 33 (12-20 (CALC)); CHLORIDE 90 mmol/l (95-108); GFR 54 ML/MIN (>=60 (CALC)); GFR FOR AFR.AMER. > 60 ML/MIN (>=60 (CALC)); POTASSIUM 3.3 mmol/l (3.5-5.1); SODIUM 127 mmol/l (137-146)
[2020-06-02 17:40] LABS: ALBUMIN 4.7 g/dL (3.2-5.0); ALKALINE PHOSPHATASE 122 u/l (38-126); ANION GAP 17 (6-22 (CALC)); BILIRUBIN, TOTAL 1.8 mg/dL (0.0-1.4); CARBON DIOXIDE 23 mmol/l (22-30); SGOT/AST 39 u/l (9-36); TOTAL PROTEIN 8.2 g/dL (6.3-8.2)
[2020-06-02 17:44] LABS: MYOGLOBIN 76 ng/mL (0 - 62)
[2020-06-02] MEDS ORDERED: METOPROLOL SUCC50 MG PO (19:26)
[2020-06-02] MEDS ORDERED: LEXAPRO10 MG PO (19:32)
[2020-06-02] MEDS ORDERED: KLOR-CON M2020 MEQ PO (19:33)
[2020-06-02] MEDS ORDERED: METOLAZONE5 MG PO (19:33)
[2020-06-02] MEDS ORDERED: NORVASC5 M1 PO (19:34)
[2020-06-02 21:00] VITALS: BP 124/58
[2020-06-02 22:00] VITALS: BP 117/59
[2020-06-03] VITALS (19 sets, daily range): BP systolic 94–134; BP diastolic 51–64
[2020-06-03 06:00] LABS: HEMATOCRIT 29.5 % (37.0-47.0); HEMOGLOBIN 9.4 g/dl (12.0-16.0); IMMATURE GRANULOCYTES 0.5 % (0.0-5.0); MEAN CELL VOLUME 97.7 fL CALC (80.0-100.0); MEAN CORPUSCULAR HGB 31.1 pG CALC (26.0-32.0); MEAN CORPUSCULAR HGB CONC 31.9 g/dL CAL (32.0-36.0); NEUT# 11.17 thou/uL (2.00-7.15); RED BLOOD COUNT 3.02 mill/uL (4.20-5.60); RED CELL DISTRI WIDTH 15.7 % (11.5-15.5)
[2020-06-03 06:15] LABS: ALBUMIN 4.1 g/dL (3.2-5.0); ALKALINE PHOSPHATASE 101 u/l (38-126); ANION GAP 16 (6-22 (CALC)); BILIRUBIN, TOTAL 1.5 mg/dL (0.0-1.4); BUN 29 mg/dL (8-23); BUN/CREATININE RATIO 38 (12-20 (CALC)); CARBON DIOXIDE 25 mmol/l (22-30); CHLORIDE 95 mmol/l (95-108); CREATININE 0.8 mg/dL (0.5-1.0); GFR > 60 ML/MIN (>=60 (CALC)); GFR FOR AFR.AMER. > 60 ML/MIN (>=60 (CALC)); POTASSIUM 3.6 mmol/l (3.5-5.1); SGOT/AST 31 u/l (9-36); SODIUM 132 mmol/l (137-146); TOTAL PROTEIN 7.1 g/dL (6.3-8.2)
[2020-06-03 11:52] LABS: URINE BILIRUBIN - DIPSTICK NEGATIVE (NEGATIVE); URINE BLOOD DIPSTICK TRACE-INTACT (NEGATIVE); URINE COLOR YELLOW; URINE GLUCOSE - DIPSTICK NEGATIVE (NEGATIVE); URINE KETONE NEGATIVE (NEGATIVE); URINE LEUK ESTERASE NEGATIVE (NEGATIVE); URINE NITRITE - DIPSTICK NEGATIVE (Negative); URINE PROTEIN - DIPSTICK NEGATIVE (NEG-TRACE); URINE SPECIFIC GRAVITY 1.015; URINE UROBILINOGEN - DIPSTICK 0.2 E.U./dL (0.2)
[2020-06-04] VITALS (21 sets, daily range): BP systolic 93–111; BP diastolic 46–59
[2020-06-04 06:08] LABS: HEMATOCRIT 24.4 % (37.0-47.0); IMMATURE GRANULOCYTES 0.5 % (0.0-5.0); MEAN CELL VOLUME 98.4 fL CALC (80.0-100.0); MEAN CORPUSCULAR HGB 32.3 pG CALC (26.0-32.0); MEAN CORPUSCULAR HGB CONC 32.8 g/dL CAL (32.0-36.0); NEUT# 10.99 thou/uL (2.00-7.15); RED BLOOD COUNT 2.48 mill/uL (4.20-5.60)
[2020-06-04 06:12] LABS: ALBUMIN 3.6 g/dL (3.2-5.0); ALKALINE PHOSPHATASE 81 u/l (38-126); BILIRUBIN, TOTAL 1.6 mg/dL (0.0-1.4); BUN 27 mg/dL (8-23); BUN/CREATININE RATIO 33 (12-20 (CALC)); CHLORIDE 97 mmol/l (95-108); CREATININE 0.8 mg/dL (0.5-1.0); GFR > 60 ML/MIN (>=60 (CALC)); GFR FOR AFR.AMER. > 60 ML/MIN (>=60 (CALC)); SGOT/AST 23 u/l (9-36); SODIUM 135 mmol/l (137-146); TOTAL PROTEIN 6.1 g/dL (6.3-8.2)
[2020-06-04 06:25] LABS: ANION GAP 10 (6-22 (CALC)); CARBON DIOXIDE 31 mmol/l (22-30); POTASSIUM 2.5 mmol/l (3.5-5.1)
[2020-06-05] VITALS (24 sets, daily range): BP systolic 95–139; BP diastolic 47–64
[2020-06-05 08:04] LABS: HEMATOCRIT 23.7 % (37.0-47.0); HEMOGLOBIN 7.5 g/dl (12.0-16.0); IMMATURE GRANULOCYTES 0.4 % (0.0-5.0); MEAN CELL VOLUME 100.9 fL CALC (80.0-100.0); MEAN CORPUSCULAR HGB 31.9 pG CALC (26.0-32.0); MEAN CORPUSCULAR HGB CONC 31.6 g/dL CAL (32.0-36.0); NEUT# 9.39 thou/uL (2.00-7.15); RED BLOOD COUNT 2.35 mill/uL (4.20-5.60); RED CELL DISTRI WIDTH 16.1 % (11.5-15.5)
[2020-06-05 08:38] LABS: ANION GAP 8 (6-22 (CALC)); BUN 19 mg/dL (8-23); BUN/CREATININE RATIO 25 (12-20 (CALC)); CARBON DIOXIDE 34 mmol/l (22-30); CHLORIDE 99 mmol/l (95-108); CREATININE 0.8 mg/dL (0.5-1.0); GFR > 60 ML/MIN (>=60 (CALC)); GFR FOR AFR.AMER. > 60 ML/MIN (>=60 (CALC)); POTASSIUM 2.8 mmol/l (3.5-5.1); SODIUM 137 mmol/l (137-146)
[2020-06-06] VITALS (14 sets, daily range): BP systolic 95–119; BP diastolic 50–59
[2020-06-06 06:24] LABS: HEMATOCRIT 24.6 % (37.0-47.0); HEMOGLOBIN 7.6 g/dl (12.0-16.0); MEAN CELL VOLUME 99.2 fL CALC (80.0-100.0); MEAN CORPUSCULAR HGB 30.6 pG CALC (26.0-32.0); MEAN CORPUSCULAR HGB CONC 30.9 g/dL CAL (32.0-36.0); RED BLOOD COUNT 2.48 mill/uL (4.20-5.60); RED CELL DISTRI WIDTH 15.8 % (11.5-15.5)
[2020-06-06 06:47] LABS: ALBUMIN 3.2 g/dL (3.2-5.0); ALKALINE PHOSPHATASE 77 u/l (38-126); ANION GAP 9 (6-22 (CALC)); BILIRUBIN, TOTAL 1.4 mg/dL (0.0-1.4); BUN 18 mg/dL (8-23); BUN/CREATININE RATIO 26 (12-20 (CALC)); CARBON DIOXIDE 31 mmol/l (22-30); CHLORIDE 100 mmol/l (95-108); CREATININE 0.7 mg/dL (0.5-1.0); GFR > 60 ML/MIN (>=60 (CALC)); GFR FOR AFR.AMER. > 60 ML/MIN (>=60 (CALC)); SGOT/AST 36 u/l (9-36); SODIUM 136 mmol/l (137-146); TOTAL PROTEIN 5.7 g/dL (6.3-8.2)
[2020-06-07] VITALS (8 sets, daily range): BP systolic 89–123; BP diastolic 49–60
[2020-06-07 06:07] LABS: HEMATOCRIT 28.6 % (37.0-47.0); HEMOGLOBIN 8.9 g/dl (12.0-16.0); IMMATURE GRANULOCYTES 0.4 % (0.0-5.0); MEAN CELL VOLUME 100.7 fL CALC (80.0-100.0); MEAN CORPUSCULAR HGB 31.3 pG CALC (26.0-32.0); MEAN CORPUSCULAR HGB CONC 31.1 g/dL CAL (32.0-36.0); NEUT# 13.71 thou/uL (2.00-7.15); RED BLOOD COUNT 2.84 mill/uL (4.20-5.60); RED CELL DISTRI WIDTH 15.8 % (11.5-15.5)
[2020-06-07 06:25] LABS: ANION GAP 13 (6-22 (CALC)); BUN 25 mg/dL (8-23); BUN/CREATININE RATIO 31 (12-20 (CALC)); CARBON DIOXIDE 29 mmol/l (22-30); CHLORIDE 99 mmol/l (95-108); CREATININE 0.8 mg/dL (0.5-1.0); GFR > 60 ML/MIN (>=60 (CALC)); GFR FOR AFR.AMER. > 60 ML/MIN (>=60 (CALC)); SODIUM 137 mmol/l (137-146)
[2020-06-07 06:30] LABS: POTASSIUM 3.7 mmol/l (3.5-5.1)
[2020-06-08] VITALS (10 sets, daily range): BP systolic 101–136; BP diastolic 54–66
[2020-06-08 10:59] LABS: HEMATOCRIT 28.7 % (37.0-47.0); HEMOGLOBIN 8.7 g/dl (12.0-16.0); IMMATURE GRANULOCYTES 0.4 % (0.0-5.0); MEAN CELL VOLUME 103.2 fL CALC (80.0-100.0); MEAN CORPUSCULAR HGB 31.3 pG CALC (26.0-32.0); MEAN CORPUSCULAR HGB CONC 30.3 g/dL CAL (32.0-36.0); NEUT# 14.47 thou/uL (2.00-7.15); RED BLOOD COUNT 2.78 mill/uL (4.20-5.60); RED CELL DISTRI WIDTH 15.9 % (11.5-15.5)
[2020-06-08 11:04] LABS: ANION GAP 15 (6-22 (CALC)); BUN 28 mg/dL (8-23); BUN/CREATININE RATIO 32 (12-20 (CALC)); CARBON DIOXIDE 29 mmol/l (22-30); CHLORIDE 100 mmol/l (95-108); CREATININE 0.9 mg/dL (0.5-1.0); GFR > 60 ML/MIN (>=60 (CALC)); GFR FOR AFR.AMER. > 60 ML/MIN (>=60 (CALC)); POTASSIUM 3.5 mmol/l (3.5-5.1); SODIUM 139 mmol/l (137-146)
== END 2020-06-08 19:21 | disposition short-term general hospital (02) | DRG 177 ==
LOC: ED 16:51 → ED-I 18:45 → ED 18:51 → ICU 18:52
PROVIDERS: Emergency Medicine; Internal Medicine; ADMIT Internal Medicine; ATTEND Internal Medicine
PROC: 5A09457 Assistance with Respiratory Ventilation, 24-96 Consecutive Hours, Continuous Positive Airway Pressure (ICD-10-PCS; principal; 2020-06-02)
DX: J69.0 Pneumonitis due to inhalation of food and vomit (principal); J96.01 Acute respiratory failure with hypoxia; J98.11 Atelectasis; J90 Pleural effusion, not elsewhere classified; R04.2 Hemoptysis; I27.22 Pulmonary hypertension due to left heart disease; E86.0 Dehydration; E87.6 Hypokalemia; I48.91 Unspecified atrial fibrillation; I36.1 Nonrheumatic tricuspid (valve) insufficiency; I25.10 Atherosclerotic heart disease of native coronary artery without angina pectoris; I11.0 Hypertensive heart disease with heart failure; I50.9 Heart failure, unspecified; J43.9 Emphysema, unspecified; J38.01 Paralysis of vocal cords and larynx, unilateral; K21.9 Gastro-esophageal reflux disease without esophagitis; F32.9 Major depressive disorder, single episode, unspecified; F41.9 Anxiety disorder, unspecified; M19.90 Unspecified osteoarthritis, unspecified site; F10.10 Alcohol abuse, uncomplicated; Z20.822 Contact with and (suspected) exposure to COVID-19; Z79.899 Other long term (current) drug therapy; Z79.01 Long term (current) use of anticoagulants; Z79.51 Long term (current) use of inhaled steroids; Z87.891 Personal history of nicotine dependence
CPT/HCPCS: J3370

== ENCOUNTER 2020-08-12 13:20 | Observation (INO) | payer MEDICARE ==
[~2020-08-12] VITALS: Ht 162.6 cm; Wt 73.0 kg
[~2020-08-12 13:20] MED LIST changes: +KLOR-CON SPRIN10 MEQ PO; +LEXAPRO10 MG PO; +METOLAZONE5 MG PO; +NORVASC5 M1 PO
[2020-08-12 13:53] LABS: IMMATURE GRANULOCYTES 0.3 % (0.0-5.0); MEAN CORPUSCULAR HGB 30.7 pG CALC (26.0-32.0); MEAN CORPUSCULAR HGB CONC 33.6 g/dL CAL (32.0-36.0); NEUT# 4.97 thou/uL (2.00-7.15); RED BLOOD COUNT 3.19 mill/uL (4.20-5.60); RED CELL DISTRI WIDTH 13.2 % (11.5-15.5)
[2020-08-12 13:54] LABS: HEMATOCRIT 29.2 % (37.0-47.0); HEMOGLOBIN 9.8 g/dl (12.0-16.0); MEAN CELL VOLUME 91.5 fL CALC (80.0-100.0)
[2020-08-12 14:15] LABS: ALKALINE PHOSPHATASE 95 u/l (38-126); BILIRUBIN, TOTAL 0.9 mg/dL (0.0-1.4); BUN 18 mg/dL (8-23); BUN/CREATININE RATIO 28 (12-20 (CALC)); CARBON DIOXIDE 32 mmol/l (22-30); CREATININE 0.6 mg/dL (0.5-1.0); GFR > 60 ML/MIN (>=60 (CALC)); GFR FOR AFR.AMER. > 60 ML/MIN (>=60 (CALC)); SGOT/AST 32 u/l (9-36)
[2020-08-12 14:22] LABS: ALBUMIN 4.7 g/dL (3.2-5.0); ANION GAP 11 (6-22 (CALC)); CHLORIDE 81 mmol/l (95-108); POTASSIUM 2.6 mmol/l (3.5-5.1); SODIUM 121 mmol/l (137-146); TOTAL PROTEIN 7.8 g/dL (6.3-8.2)
[2020-08-12 18:37] VITALS: BP 129/70
[2020-08-13] VITALS: BP 95/50
[2020-08-13 04:00] VITALS: BP 98/53
[2020-08-13 05:51] LABS: BUN 13 mg/dL (8-23); BUN/CREATININE RATIO 24 (12-20 (CALC)); CARBON DIOXIDE 34 mmol/l (22-30); CREATININE 0.5 mg/dL (0.5-1.0); GFR > 60 ML/MIN (>=60 (CALC)); GFR FOR AFR.AMER. > 60 ML/MIN (>=60 (CALC)); MAGNESIUM 2.6 mg/dL (1.6-2.3); POTASSIUM 2.7 mmol/l (3.5-5.1)
[2020-08-13 05:52] LABS: ANION GAP 8 (6-22 (CALC)); CHLORIDE 93 mmol/l (95-108); SODIUM 132 mmol/l (137-146)
[2020-08-13 07:27] VITALS: BP 110/61
[2020-08-13 08:11] LABS: URINE BILIRUBIN - DIPSTICK NEGATIVE (NEGATIVE); URINE BLOOD DIPSTICK NEGATIVE (NEGATIVE); URINE GLUCOSE - DIPSTICK NEGATIVE (NEGATIVE); URINE KETONE NEGATIVE (NEGATIVE); URINE LEUK ESTERASE NEGATIVE (NEGATIVE); URINE NITRITE - DIPSTICK NEGATIVE (Negative); URINE PROTEIN - DIPSTICK NEGATIVE (NEG-TRACE); URINE UROBILINOGEN - DIPSTICK 0.2 E.U./dL (0.2)
[2020-08-13 08:12] LABS: URINE COLOR STRAW
[2020-08-13] MEDS ORDERED: SINGULAIR10 MG PO (08:19)
[2020-08-13] MEDS ORDERED: OPSUMIT10 MG PO (08:19)
[2020-08-13] MEDS ORDERED: KLOR-CON SPRIN10 MEQ PO (10:45)
[2020-08-13 11:07] VITALS: BP 100/48
== END 2020-08-13 12:12 | disposition home or self-care (01) ==
LOC: ED 13:20 → ED-I 14:50 → ED 14:56 → MS2 14:57
PROVIDERS: Family Medicine; ADMIT Internal Medicine; ATTEND Internal Medicine
DX: E87.6 Hypokalemia (principal); E87.1 Hypo-osmolality and hyponatremia; R06.02 Shortness of breath; I11.0 Hypertensive heart disease with heart failure; I50.9 Heart failure, unspecified; I25.10 Atherosclerotic heart disease of native coronary artery without angina pectoris; J43.9 Emphysema, unspecified; K21.9 Gastro-esophageal reflux disease without esophagitis; I48.91 Unspecified atrial fibrillation; F32.9 Major depressive disorder, single episode, unspecified; F41.9 Anxiety disorder, unspecified; Z87.01 Personal history of pneumonia (recurrent); Z87.891 Personal history of nicotine dependence; Z99.81 Dependence on supplemental oxygen; Z20.822 Contact with and (suspected) exposure to COVID-19
CPT/HCPCS: J3475

== ENCOUNTER 2021-04-13 19:51 | Inpatient (IN) | payer MEDICARE ==
[~2021-04-13] VITALS: Ht 162.6 cm; Wt 74.9 kg
[~2021-04-13 19:51] MED LIST changes: +OPSUMIT10 MG PO; +SINGULAIR10 MG PO
[2021-04-13 20:31] LABS: HEMATOCRIT 40.1 % (37.0-47.0); HEMOGLOBIN 12.7 g/dl (12.0-16.0); IMMATURE GRANULOCYTES 0.5 % (0.0-5.0); MEAN CELL VOLUME 102.6 fL CALC (80.0-100.0); MEAN CORPUSCULAR HGB 32.5 pG CALC (26.0-32.0); MEAN CORPUSCULAR HGB CONC 31.7 g/dL CAL (32.0-36.0); NEUT# 8.71 thou/uL (2.00-7.15); RED BLOOD COUNT 3.91 mill/uL (4.20-5.60); RED CELL DISTRI WIDTH 13.5 % (11.5-15.5)
[2021-04-13 20:45] LABS: ALBUMIN 4.9 g/dL (3.2-5.0); BILIRUBIN, TOTAL 0.9 mg/dL (0.0-1.4); BUN 20 mg/dL (8-23); BUN/CREATININE RATIO 21 (12-20 (CALC)); CHLORIDE 93 mmol/l (95-108); CREATININE 0.9 mg/dL (0.5-1.0); GFR > 60 ML/MIN (>=60 (CALC)); GFR FOR AFR.AMER. > 60 ML/MIN (>=60 (CALC)); POTASSIUM 3.6 mmol/l (3.5-5.1); SGOT/AST 30 u/l (9-36); TOTAL PROTEIN 8.5 g/dL (6.3-8.2)
[2021-04-13 20:46] LABS: ALKALINE PHOSPHATASE 115 u/l (38-126); ANION GAP 19 (6-22 (CALC)); CARBON DIOXIDE 20 mmol/l (22-30); SODIUM 128 mmol/l (137-146)
[2021-04-13 20:57] LABS: MYOGLOBIN 57 ng/mL (0 - 62)
[2021-04-13 21:38] LABS: URINE BILIRUBIN - DIPSTICK NEGATIVE (NEGATIVE); URINE BLOOD DIPSTICK SMALL (NEGATIVE); URINE COLOR YELLOW; URINE GLUCOSE - DIPSTICK NEGATIVE (NEGATIVE); URINE KETONE NEGATIVE (NEGATIVE); URINE LEUK ESTERASE NEGATIVE (NEGATIVE); URINE PROTEIN - DIPSTICK NEGATIVE (NEG-TRACE); URINE UROBILINOGEN - DIPSTICK 0.2 E.U./dL (0.2)
[2021-04-13 21:39] LABS: URINE NITRITE - DIPSTICK NEGATIVE (Negative)
[2021-04-13 21:58] LABS: URINE RBC 0-2 RBC/hpf (0-5)
[2021-04-14] VITALS (10 sets, daily range): BP systolic 113–157; BP diastolic 48–70
[2021-04-14 04:42] LABS: HEMOGLOBIN 10.8 g/dl (12.0-16.0); MEAN CORPUSCULAR HGB 32.6 pG CALC (26.0-32.0); RED BLOOD COUNT 3.31 mill/uL (4.20-5.60); RED CELL DISTRI WIDTH 13.1 % (11.5-15.5)
[2021-04-14 04:57] LABS: HEMATOCRIT 31.8 % (37.0-47.0); MEAN CELL VOLUME 96.1 fL CALC (80.0-100.0)
[2021-04-14 05:07] LABS: BUN 17 mg/dL (8-23); BUN/CREATININE RATIO 25 (12-20 (CALC)); CHLORIDE 91 mmol/l (95-108); CREATININE 0.7 mg/dL (0.5-1.0); GFR > 60 ML/MIN (>=60 (CALC)); GFR FOR AFR.AMER. > 60 ML/MIN (>=60 (CALC)); POTASSIUM 3.5 mmol/l (3.5-5.1); SODIUM 128 mmol/l (137-146)
[2021-04-14 05:10] LABS: ANION GAP 15 (6-22 (CALC)); CARBON DIOXIDE 26 mmol/l (22-30); MAGNESIUM 1.9 mg/dL (1.6-2.3)
[2021-04-14] MEDS ORDERED: LASIX20 MG PO (11:24)
[2021-04-14] MEDS ORDERED: LEXAPRO10 MG PO (11:24)
[2021-04-14] MEDS ORDERED: PROTONIX40 M2 PO (11:25)
[2021-04-14] MEDS ORDERED: OPSUMIT10 MG (11:25)
[2021-04-14] MEDS ORDERED: ALDACTONE25 MG PO (11:25)
[2021-04-14] MEDS ORDERED: TRELEGY ELLIPTA1 AER (11:25)
[2021-04-14] MEDS ORDERED: COZAAR25 MG PO (11:26)
[2021-04-14] MEDS ORDERED: KLOR-CON M2020 MEQ PO (11:26)
[2021-04-14] MEDS ORDERED: MONTELUKAST SOD10 MG PO (11:27)
[2021-04-14] MEDS ORDERED: METOLAZONE5 MG PO (11:27)
[2021-04-14] MEDS ORDERED: ELIQUIS5 MG PO (11:27)
[2021-04-14] MEDS ORDERED: TOPROL XL25 MG PO (11:27)
[2021-04-14] MEDS ORDERED: OMNICEF300 M1 PO (11:28)
[2021-04-14] MEDS ORDERED: AZITHROMYCIN500 MG PO (11:28)
== END 2021-04-14 12:45 | disposition home or self-care (01) | DRG 177 ==
LOC: ED 19:51 → ED-I 22:45 → ED 22:55 → ICU 22:56
PROVIDERS: Emergency Medicine; ADMIT Hospitalist; ATTEND Hospitalist
PROC: 0T9B70Z Drainage of Bladder with Drainage Device, Via Natural or Artificial Opening (ICD-10-PCS; principal; 2021-04-13)
DX: J69.0 Pneumonitis due to inhalation of food and vomit (principal); J96.21 Acute and chronic respiratory failure with hypoxia; E87.1 Hypo-osmolality and hyponatremia; I27.20 Pulmonary hypertension, unspecified; J43.9 Emphysema, unspecified; I11.0 Hypertensive heart disease with heart failure; I50.9 Heart failure, unspecified; I48.91 Unspecified atrial fibrillation; I25.10 Atherosclerotic heart disease of native coronary artery without angina pectoris; J38.3 Other diseases of vocal cords; F41.9 Anxiety disorder, unspecified; F32.A Depression, unspecified; F10.10 Alcohol abuse, uncomplicated; K21.9 Gastro-esophageal reflux disease without esophagitis; Z99.81 Dependence on supplemental oxygen; Z98.84 Bariatric surgery status; Z87.891 Personal history of nicotine dependence; Z91.14 Patient's other noncompliance with medication regimen; Z20.822 Contact with and (suspected) exposure to COVID-19
CPT/HCPCS: Q9967

== ENCOUNTER 2021-05-19 17:17 | Emergency (ER) | payer MEDICARE ==
[~2021-05-19] VITALS: Ht 162.6 cm; Wt 75.0 kg
[~2021-05-19 17:17] MED LIST changes: +ALDACTONE25 MG PO; +AZITHROMYCIN500 MG PO; +COZAAR25 MG PO; +KLOR-CON M2020 MEQ PO; +LASIX20 MG PO; +MONTELUKAST SOD10 MG PO; +OMNICEF300 M1 PO; +OPSUMIT10 MG; +TOPROL XL25 MG PO; +TRELEGY ELLIPTA1 AER
[2021-05-19 17:52] VITALS: BP 188/83
[2021-05-19 17:56] LABS: HEMATOCRIT 29.1 % (37.0-47.0); HEMOGLOBIN 9.4 g/dl (12.0-16.0); IMMATURE GRANULOCYTES 0.1 % (0.0-5.0); MEAN CELL VOLUME 99.7 fL CALC (80.0-100.0); MEAN CORPUSCULAR HGB 32.2 pG CALC (26.0-32.0); MEAN CORPUSCULAR HGB CONC 32.3 g/dL CAL (32.0-36.0); NEUT# 5.03 thou/uL (2.00-7.15); RED BLOOD COUNT 2.92 mill/uL (4.20-5.60); RED CELL DISTRI WIDTH 13.3 % (11.5-15.5)
[2021-05-19 18:13] LABS: ALBUMIN 4.2 g/dL (3.2-5.0); ALKALINE PHOSPHATASE 87 u/l (38-126); ANION GAP 12 (6-22 (CALC)); BUN 21 mg/dL (8-23); BUN/CREATININE RATIO 24 (12-20 (CALC)); CARBON DIOXIDE 26 mmol/l (22-30); CHLORIDE 101 mmol/l (95-108); CREATININE 0.9 mg/dL (0.5-1.0); GFR > 60 ML/MIN (>=60 (CALC)); GFR FOR AFR.AMER. > 60 ML/MIN (>=60 (CALC)); LIPASE 130 u/l (23-300); POTASSIUM 3.9 mmol/l (3.5-5.1); SGOT/AST 23 u/l (9-36); TOTAL PROTEIN 7.3 g/dL (6.3-8.2)
[2021-05-19 18:25] LABS: SODIUM 135 mmol/l (137-146)
== END 2021-05-19 19:14 | disposition home or self-care (01) ==
LOC: ED 17:17
DX: J44.1 Chronic obstructive pulmonary disease with (acute) exacerbation (principal); F41.9 Anxiety disorder, unspecified; I10 Essential (primary) hypertension; I48.91 Unspecified atrial fibrillation; K21.9 Gastro-esophageal reflux disease without esophagitis; F32.A Depression, unspecified; Z99.81 Dependence on supplemental oxygen; Z98.84 Bariatric surgery status; Z20.822 Contact with and (suspected) exposure to COVID-19

== ENCOUNTER 2022-05-15 17:41 | Emergency (ER) | payer MEDICARE ==
[~2022-05-15] VITALS: Ht 162.6 cm; Wt 72.0 kg
[2022-05-15 17:53] VITALS: BP 168/86
[2022-05-15 18:00] VITALS: BP 145/84
[2022-05-15 18:30] VITALS: BP 146/63
[2022-05-15 18:50] VITALS: BP 158/69
[2022-05-15 19:00] VITALS: BP 139/70
[2022-05-15 19:31] VITALS: BP 162/82
== END 2022-05-15 19:58 | disposition home or self-care (01) ==
LOC: ED 17:41
PROC: 2Y41X5Z Packing of Nasal Region using Packing Material (ICD-10-PCS; principal; 2022-05-15)
DX: J95.830 Postprocedural hemorrhage of a respiratory system organ or structure following a respiratory system procedure (principal); I48.91 Unspecified atrial fibrillation; I27.20 Pulmonary hypertension, unspecified; I10 Essential (primary) hypertension; J44.9 Chronic obstructive pulmonary disease, unspecified; K21.9 Gastro-esophageal reflux disease without esophagitis; F32.A Depression, unspecified; Y83.1 Surgical operation with implant of artificial internal device as the cause of abnormal reaction of the patient, or of later complication, without mention of misadventure at the time of the procedure; Z99.81 Dependence on supplemental oxygen; Z79.01 Long term (current) use of anticoagulants

== ENCOUNTER 2022-05-16 02:25 | Emergency (ER) | payer MEDICARE ==
[2022-05-16] VITALS (49 sets, daily range): BP systolic 104–194; BP diastolic 44–112
[~2022-05-16] VITALS: Ht 162.6 cm; Wt 56.0 kg
[2022-05-16 02:48] LABS: IMMATURE GRANULOCYTES 0.8 % (0.0-5.0); MEAN CELL VOLUME 102.3 fL CALC (80.0-100.0); MEAN CORPUSCULAR HGB 33.5 pG CALC (26.0-32.0); MEAN CORPUSCULAR HGB CONC 32.7 g/dL CAL (32.0-36.0); NEUT# 8.82 thou/uL (2.00-7.15); RED BLOOD COUNT 2.15 mill/uL (4.20-5.60); RED CELL DISTRI WIDTH 12.7 % (11.5-15.5)
[2022-05-16 02:58] LABS: HEMOGLOBIN 7.2 g/dl (12.0-16.0)
[2022-05-16 03:00] LABS: ALKALINE PHOSPHATASE 46 u/l (38-126); BILIRUBIN, TOTAL 0.6 mg/dL (0.0-1.4); BUN 28 mg/dL (8-23); BUN/CREATININE RATIO 45 (12-20 (CALC)); CARBON DIOXIDE 22 mmol/l (22-30); CHLORIDE 97 mmol/l (95-108); CREATININE 0.6 mg/dL (0.5-1.0); GFR FOR AFR.AMER. > 60 ML/MIN (>=60 (CALC)); GFR OTHER RACES > 60 ML/MIN (>=60 (CALC)); SGOT/AST 27 u/l (9-36); SODIUM 129 mmol/l (137-146); TOTAL PROTEIN 6.3 g/dL (6.3-8.2)
[2022-05-16 03:01] LABS: ANION GAP 13 (6-22 (CALC)); POTASSIUM 3.1 mmol/l (3.5-5.1)
[2022-05-16 03:02] LABS: ACT PARTIAL THROMBO TIME 28.1 SECONDS (20.0-32.5); INTERNATIONAL NORMALIZED RATIO 1.1 RATIO (0.7-1.3); PROTHROMBIN TIME 10.5 SECONDS (9.0-12.5)
[2022-05-16 08:49] LABS: HEMATOCRIT 20.8 % (37.0-47.0); IMMATURE GRANULOCYTES 0.2 % (0.0-5.0); MEAN CELL VOLUME 100.5 fL CALC (80.0-100.0); MEAN CORPUSCULAR HGB 32.9 pG CALC (26.0-32.0); MEAN CORPUSCULAR HGB CONC 32.7 g/dL CAL (32.0-36.0); NEUT# 9.15 thou/uL (2.00-7.15); RED BLOOD COUNT 2.07 mill/uL (4.20-5.60)
[2022-05-16 08:52] LABS: HEMOGLOBIN 6.8 g/dl (12.0-16.0)
== END 2022-05-16 09:45 ==
LOC: ED 02:25
PROVIDERS: Family Medicine
PROC: 30233N1 Transfusion of Nonautologous Red Blood Cells into Peripheral Vein, Percutaneous Approach (ICD-10-PCS; principal; 2022-05-16)
PROC: 30233N1 Transfusion of Nonautologous Red Blood Cells into Peripheral Vein, Percutaneous Approach (ICD-10-PCS; 2022-05-16)
PROC: 30233N1 Transfusion of Nonautologous Red Blood Cells into Peripheral Vein, Percutaneous Approach (ICD-10-PCS; 2022-05-16)
PROC: 0BH17EZ Insertion of Endotracheal Airway into Trachea, Via Natural or Artificial Opening (ICD-10-PCS; 2022-05-16)
PROC: 5A1935Z Respiratory Ventilation, Less than 24 Consecutive Hours (ICD-10-PCS; 2022-05-16)
PROC: 05HM33Z Insertion of Infusion Device into Right Internal Jugular Vein, Percutaneous Approach (ICD-10-PCS; 2022-05-16)
PROC: 0T9B70Z Drainage of Bladder with Drainage Device, Via Natural or Artificial Opening (ICD-10-PCS; 2022-05-16)
DX: J95.830 Postprocedural hemorrhage of a respiratory system organ or structure following a respiratory system procedure (principal); D62 Acute posthemorrhagic anemia; I10 Essential (primary) hypertension; J44.9 Chronic obstructive pulmonary disease, unspecified; I48.91 Unspecified atrial fibrillation; K21.9 Gastro-esophageal reflux disease without esophagitis; F32.A Depression, unspecified; Y83.1 Surgical operation with implant of artificial internal device as the cause of abnormal reaction of the patient, or of later complication, without mention of misadventure at the time of the procedure; Z99.81 Dependence on supplemental oxygen; Z79.01 Long term (current) use of anticoagulants
CPT/HCPCS: P9016

== ENCOUNTER 2022-08-31 12:49 | Emergency (ER) | payer MEDICARE ==
[~2022-08-31] VITALS: Ht 162.6 cm; Wt 66.0 kg
[2022-08-31] VITALS (8 sets, daily range): BP systolic 93–117; BP diastolic 38–54
[2022-08-31 13:21] LABS: BASO% 0.6 % (0-3); EOS% 1.1 % (0-8); IMMATURE GRANULOCYTES 0.1 % (0.0-5.0); LYMPH% 12.9 % (15-41); MEAN CELL VOLUME 100.3 fL CALC (80.0-100.0); MEAN CORPUSCULAR HGB CONC 30.9 g/dL CAL (32.0-36.0); MONO% 7.3 % (2-13); NEUT# 6.67 thou/uL (2.00-7.15); RED BLOOD COUNT 3.26 mill/uL (4.20-5.60); RED CELL DISTRI WIDTH 14.9 % (11.5-15.5)
[2022-08-31 13:41] LABS: HEMATOCRIT 32.7 % (37.0-47.0); HEMOGLOBIN 10.1 g/dl (12.0-16.0)
[2022-08-31 13:48] LABS: ALBUMIN 4.6 g/dL (3.2-5.0); ALKALINE PHOSPHATASE 67 u/l (38-126); BUN 30 mg/dL (8-23); BUN/CREATININE RATIO 29 (12-20 (CALC)); CARBON DIOXIDE 23 mmol/l (22-30); CHLORIDE 104 mmol/l (95-108); GFR FOR AFR.AMER. > 60 ML/MIN (>=60 (CALC)); GFR OTHER RACES 54 ML/MIN (>=60 (CALC))
[2022-08-31 13:57] LABS: ANION GAP 13 (6-22 (CALC)); BILIRUBIN, TOTAL 1.4 mg/dL (0.02-1.3); SGOT/AST 49 u/l (9-36); SODIUM 137 mmol/l (137-146); TOTAL PROTEIN 7.8 g/dL (6.3-8.2)
== END 2022-08-31 15:56 | disposition left against medical advice (07) ==
LOC: ED 12:49
PROVIDERS: Family Medicine
DX: I11.0 Hypertensive heart disease with heart failure (principal); I50.9 Heart failure, unspecified; R07.9 Chest pain, unspecified; I27.20 Pulmonary hypertension, unspecified; J44.9 Chronic obstructive pulmonary disease, unspecified; K21.9 Gastro-esophageal reflux disease without esophagitis; I48.91 Unspecified atrial fibrillation; F32.A Depression, unspecified; Z53.29 Procedure and treatment not carried out because of patient's decision for other reasons; Z95.818 Presence of other cardiac implants and grafts; Z99.81 Dependence on supplemental oxygen; Z98.84 Bariatric surgery status; Z20.822 Contact with and (suspected) exposure to COVID-19
CPT/HCPCS: Q9967

== ENCOUNTER 2022-10-04 22:08 | Inpatient (IN) | payer MEDICARE ==
[~2022-10-04] VITALS: Ht 162.6 cm; Wt 67.2 kg
[~2022-10-04 22:08] MED LIST changes: -OPSUMIT10 MG; -TOPROL XL25 MG PO
[2022-10-04 22:29] LABS: BASO% 0.2 % (0-3); EOS% 0.8 % (0-8); HEMATOCRIT 35.5 % (37.0-47.0); HEMOGLOBIN 10.7 g/dl (12.0-16.0); IMMATURE GRANULOCYTES 0.4 % (0.0-5.0); LYMPH% 5.9 % (15-41); MEAN CELL VOLUME 102.9 fL CALC (80.0-100.0); MEAN CORPUSCULAR HGB CONC 30.1 g/dL CAL (32.0-36.0); MONO% 3.5 % (2-13); NEUT# 25.24 thou/uL (2.00-7.15); NEUT% 89.2 % (42-76); RED BLOOD COUNT 3.45 mill/uL (4.20-5.60); RED CELL DISTRI WIDTH 14.9 % (11.5-15.5)
[2022-10-04 22:40] LABS: PROTHROMBIN TIME 9.5 SECONDS (9.0-12.5)
[2022-10-04 22:41] LABS: ALBUMIN 4.4 g/dL (3.2-5.0); CREATININE 1.1 mg/dL (0.5-1.0); TOTAL PROTEIN 7.2 g/dL (6.3-8.2)
[2022-10-04 22:42] LABS: BILIRUBIN, TOTAL 0.4 mg/dL (0.02-1.3); POTASSIUM 4.3 mmol/l (3.5-5.1)
[2022-10-04 23:45] LABS: URINE BILIRUBIN - DIPSTICK NEGATIVE (NEGATIVE); URINE BLOOD DIPSTICK TRACE-INTACT (NEGATIVE); URINE COLOR YELLOW; URINE GLUCOSE - DIPSTICK NEGATIVE (NEGATIVE); URINE KETONE NEGATIVE (NEGATIVE); URINE LEUK ESTERASE TRACE (NEGATIVE); URINE PH 5.5 (4.5-8.0); URINE PROTEIN - DIPSTICK NEGATIVE (NEG-TRACE); URINE SPECIFIC GRAVITY 1.015; URINE UROBILINOGEN - DIPSTICK 0.2 E.U./dL (0.2)
[2022-10-04 23:48] LABS: URINE BACTERIA MANY hpf; URINE MUCUS FEW hpf (NONE-FEW); URINE NITRITE - DIPSTICK POSITIVE (Negative); URINE SQUAMOUS EPITHELIAL CELL FEW EPI/hpf (0-FEW)
[2022-10-05 09:20] LABS: IMMATURE GRANULOCYTES 0.3 % (0.0-5.0); LYMPH% 1.4 % (15-41); MEAN CELL VOLUME 99.7 fL CALC (80.0-100.0); MEAN CORPUSCULAR HGB CONC 31.1 g/dL CAL (32.0-36.0); MONO% 0.8 % (2-13); NEUT# 23.34 thou/uL (2.00-7.15); NEUT% 97.5 % (42-76); RED BLOOD COUNT 2.9 mill/uL (4.20-5.60); RED CELL DISTRI WIDTH 14.9 % (11.5-15.5)
[2022-10-05 09:21] LABS: HEMATOCRIT 28.9 % (37.0-47.0)
[2022-10-05 09:33] LABS: ANION GAP 16 (6-22 (CALC)); BUN 23 mg/dL (8-23); BUN/CREATININE RATIO 29 (12-20 (CALC)); CARBON DIOXIDE 17 mmol/l (22-30); CHLORIDE 106 mmol/l (95-108); CREATININE 0.8 mg/dL (0.5-1.0); GFR FOR AFR.AMER. > 60 ML/MIN (>=60 (CALC)); GFR OTHER RACES > 60 ML/MIN (>=60 (CALC)); SODIUM 135 mmol/l (137-146)
[2022-10-05] MEDS ORDERED: ZOCOR PO (11:07)
[2022-10-05] MEDS ORDERED: POM PO ×4 (11:10→11:19)
[2022-10-05] MEDS ORDERED: UPTRAVI800 MCG PO (11:28)
[2022-10-05] MEDS ORDERED: IRON325 M1 PO (12:12)
[2022-10-05] MEDS ORDERED: PROZAC40 MG PO (12:25)
[2022-10-05] MEDS ORDERED: PACERONE100 MG PO (12:25)
[2022-10-05 19:00] VITALS: BP 103/51
[2022-10-05 20:00] VITALS: BP 96/53
[2022-10-05 21:00] VITALS: BP 90/39
[2022-10-05 22:00] VITALS: BP 102/63
[2022-10-05 23:00] VITALS: BP 97/55
[2022-10-06] VITALS (31 sets, daily range): BP systolic 82–111; BP diastolic 37–58
[2022-10-06 05:38] LABS: BASO% 0.1 % (0-3); EOS% 0.1 % (0-8); HEMOGLOBIN 8.8 g/dl (12.0-16.0); IMMATURE GRANULOCYTES 0.2 % (0.0-5.0); LYMPH% 8.7 % (15-41); MEAN CELL VOLUME 98.2 fL CALC (80.0-100.0); MEAN CORPUSCULAR HGB 30.9 pG CALC (26.0-32.0); MEAN CORPUSCULAR HGB CONC 31.4 g/dL CAL (32.0-36.0); MONO% 6.8 % (2-13); NEUT# 11.33 thou/uL (2.00-7.15); NEUT% 84.1 % (42-76); RED BLOOD COUNT 2.85 mill/uL (4.20-5.60)
[2022-10-06 05:43] LABS: BUN 26 mg/dL (8-23); BUN/CREATININE RATIO 34 (12-20 (CALC)); CHLORIDE 103 mmol/l (95-108); CREATININE 0.8 mg/dL (0.5-1.0); GFR FOR AFR.AMER. > 60 ML/MIN (>=60 (CALC)); GFR OTHER RACES > 60 ML/MIN (>=60 (CALC)); POTASSIUM 3.6 mmol/l (3.5-5.1); SODIUM 133 mmol/l (137-146)
[2022-10-06 05:48] LABS: ANION GAP 11 (6-22 (CALC)); CARBON DIOXIDE 23 mmol/l (22-30); MAGNESIUM 2.6 mg/dL (1.6-2.3)
[2022-10-07] VITALS (32 sets, daily range): BP systolic 72–112; BP diastolic 37–59
[2022-10-07 06:05] LABS: HEMATOCRIT 26.1 % (37.0-47.0); MEAN CELL VOLUME 99.6 fL CALC (80.0-100.0); MEAN CORPUSCULAR HGB 30.5 pG CALC (26.0-32.0); MEAN CORPUSCULAR HGB CONC 30.7 g/dL CAL (32.0-36.0); RED BLOOD COUNT 2.62 mill/uL (4.20-5.60); RED CELL DISTRI WIDTH 14.8 % (11.5-15.5)
[2022-10-07 06:21] LABS: ALKALINE PHOSPHATASE 53 u/l (38-126); ANION GAP 8 (6-22 (CALC)); BUN 21 mg/dL (8-23); BUN/CREATININE RATIO 28 (12-20 (CALC)); CARBON DIOXIDE 27 mmol/l (22-30); CHLORIDE 104 mmol/l (95-108); CREATININE 0.8 mg/dL (0.5-1.0); GFR FOR AFR.AMER. > 60 ML/MIN (>=60 (CALC)); GFR OTHER RACES > 60 ML/MIN (>=60 (CALC)); MAGNESIUM 2.5 mg/dL (1.6-2.3); POTASSIUM 3.7 mmol/l (3.5-5.1); SODIUM 135 mmol/l (137-146)
[2022-10-07 06:36] LABS: ALBUMIN 3.4 g/dL (3.2-5.0); BILIRUBIN, TOTAL 0.6 mg/dL (0.02-1.3); SGOT/AST 54 u/l (9-36); TOTAL PROTEIN 5.7 g/dL (6.3-8.2)
[2022-10-08] VITALS (11 sets, daily range): BP systolic 83–125; BP diastolic 43–65
[2022-10-08 08:42] LABS: HEMATOCRIT 28.6 % (37.0-47.0); HEMOGLOBIN 8.9 g/dl (12.0-16.0); MEAN CELL VOLUME 99.3 fL CALC (80.0-100.0); MEAN CORPUSCULAR HGB 30.9 pG CALC (26.0-32.0); MEAN CORPUSCULAR HGB CONC 31.1 g/dL CAL (32.0-36.0); RED BLOOD COUNT 2.88 mill/uL (4.20-5.60); RED CELL DISTRI WIDTH 14.9 % (11.5-15.5)
[2022-10-08] MEDS ORDERED: CEFDINIR300 MG PO (08:55)
[2022-10-08] MEDS ORDERED: MIDODRINE5 MG PO (08:55)
[2022-10-08 08:58] LABS: ALBUMIN 3.9 g/dL (3.2-5.0); ALKALINE PHOSPHATASE 68 u/l (38-126); ANION GAP 9 (6-22 (CALC)); BILIRUBIN, TOTAL 0.7 mg/dL (0.02-1.3); BUN 14 mg/dL (8-23); BUN/CREATININE RATIO 21 (12-20 (CALC)); CARBON DIOXIDE 28 mmol/l (22-30); CHLORIDE 103 mmol/l (95-108); CREATININE 0.6 mg/dL (0.5-1.0); GFR FOR AFR.AMER. > 60 ML/MIN (>=60 (CALC)); GFR OTHER RACES > 60 ML/MIN (>=60 (CALC)); MAGNESIUM 2.6 mg/dL (1.6-2.3); POTASSIUM 3.1 mmol/l (3.5-5.1); SGOT/AST 35 u/l (9-36); SODIUM 136 mmol/l (137-146); TOTAL PROTEIN 6.3 g/dL (6.3-8.2)
== END 2022-10-08 11:25 | disposition home or self-care (01) | DRG 291 ==
LOC: ED 22:08 → ICU 10-05 00:39
PROVIDERS: Family Medicine; Internal Medicine; ADMIT Internal Medicine; ATTEND Internal Medicine
PROC: 5A09357 Assistance with Respiratory Ventilation, Less than 24 Consecutive Hours, Continuous Positive Airway Pressure (ICD-10-PCS; principal; 2022-10-04)
DX: I11.0 Hypertensive heart disease with heart failure (principal); I50.33 Acute on chronic diastolic (congestive) heart failure; J96.21 Acute and chronic respiratory failure with hypoxia; N39.0 Urinary tract infection, site not specified; E87.1 Hypo-osmolality and hyponatremia; I95.2 Hypotension due to drugs; T50.2X5A Adverse effect of carbonic-anhydrase inhibitors, benzothiadiazides and other diuretics, initial encounter; I48.91 Unspecified atrial fibrillation; J43.9 Emphysema, unspecified; I27.20 Pulmonary hypertension, unspecified; I25.10 Atherosclerotic heart disease of native coronary artery without angina pectoris; K21.9 Gastro-esophageal reflux disease without esophagitis; F41.9 Anxiety disorder, unspecified; F32.A Depression, unspecified; Z87.01 Personal history of pneumonia (recurrent); Z99.81 Dependence on supplemental oxygen; Z20.822 Contact with and (suspected) exposure to COVID-19; Z95.818 Presence of other cardiac implants and grafts
CPT/HCPCS: J1650

== ENCOUNTER 2022-10-19 23:53 | Inpatient (IN) | payer MEDICARE ==
[~2022-10-19] VITALS: Ht 162.6 cm; Wt 70.2 kg
[~2022-10-19 23:53] MED LIST changes: +CEFDINIR300 MG PO; +IRON325 M1 PO; +MIDODRINE5 MG PO; +PACERONE100 MG PO; +POM PO; +PROZAC40 MG PO; +UPTRAVI800 MCG PO; +ZOCOR PO
[2022-10-20] VITALS (19 sets, daily range): BP systolic 93–115; BP diastolic 46–65
[2022-10-20 00:54] LABS: BASO% 0.4 % (0-3); EOS% 0.1 % (0-8); HEMATOCRIT 30.4 % (37.0-47.0); HEMOGLOBIN 9.2 g/dl (12.0-16.0); IMMATURE GRANULOCYTES 0.2 % (0.0-5.0); LYMPH% 6.5 % (15-41); MEAN CORPUSCULAR HGB 30.6 pG CALC (26.0-32.0); MEAN CORPUSCULAR HGB CONC 30.3 g/dL CAL (32.0-36.0); MONO% 9.6 % (2-13); NEUT# 9.13 thou/uL (2.00-7.15); NEUT% 83.2 % (42-76); RED BLOOD COUNT 3.01 mill/uL (4.20-5.60); RED CELL DISTRI WIDTH 15.4 % (11.5-15.5)
[2022-10-20 01:08] LABS: ALBUMIN 4.1 g/dL (3.2-5.0); BUN 25 mg/dL (8-23); BUN/CREATININE RATIO 19 (12-20 (CALC)); CHLORIDE 110 mmol/l (95-108); CREATININE 1.3 mg/dL (0.5-1.0); GFR FOR AFR.AMER. 48 ML/MIN (>=60 (CALC)); GFR OTHER RACES 40 ML/MIN (>=60 (CALC)); SODIUM 136 mmol/l (137-146)
[2022-10-20 01:12] LABS: ALKALINE PHOSPHATASE 133 u/l (38-126); ANION GAP 18 (6-22 (CALC)); BILIRUBIN, TOTAL 1.3 mg/dL (0.02-1.3); CARBON DIOXIDE 15 mmol/l (22-30); POTASSIUM 6.7 mmol/l (3.5-5.1); SGOT/AST 192 u/l (9-36)
[2022-10-20 03:22] LABS: URINE BLOOD DIPSTICK SMALL (NEGATIVE); URINE COLOR YELLOW; URINE GLUCOSE - DIPSTICK NEGATIVE (NEGATIVE); URINE KETONE NEGATIVE (NEGATIVE); URINE PH 5.5 (4.5-8.0); URINE PROTEIN - DIPSTICK 100 mg/dL (NEG-TRACE); URINE SPECIFIC GRAVITY 1.025
[2022-10-20 03:26] LABS: URINE BILIRUBIN - DIPSTICK SEE COMMNET (NEGATIVE); URINE LEUK ESTERASE SMALL (NEGATIVE); URINE NITRITE - DIPSTICK NEGATIVE (Negative)
[2022-10-20 03:29] LABS: URINE BACTERIA MANY hpf; URINE SQUAMOUS EPITHELIAL CELL FEW EPI/hpf (0-FEW)
--- NOTE | 2022-10-20 04:00 | NUR ---
PT ARRIVE TO UNIT VIA WHEELCHAIR ACCOMANIED MAUREEN STAFF. PT ABLE TO TRANSFERTO BED BY HERSELF AND AMBULATE. PT A&OX3. OXYGEN AT 3L VIA NASAL CANNULA. EMSIV TO RAC PATENT AND FLUSHES WELL. MED REC UPDATED. ADDMISION ASSESSMENT COMPLETED. ISKIN IS INTACT WITH BRUISES TO UPPER EXTREMITIES. ON TELE #[id number]. ALLERGY BRACELTIN PLACE. PT ORIENTED TO ROOM AND CALL LIGHT SYSTEM. NO NEEDS OR CONCERN VOICED AT THIS TIME CALL LIGHT IN REACH AND BED IN LOWEST POSITION.
[2022-10-20] MEDS ORDERED: VAZALORE81 MG (04:31)
[2022-10-20] MEDS ORDERED: PLAVIX75 MG PO (04:37)
--- NOTE | 2022-10-20 07:00 | NUR ---
BEDSIDE SHIFT REPORT, PT AWAKE ALERT AND ORIENTED SITTING UP IN BED, NO C/O DISCOMFORT AT THIS TIME, O2 @ 3L VIA NC IN PLACE, TELE MONITOR IN PLACE, CALL FORD IN REACH AND BED LOCKED IN LOWEST POSITION.
[2022-10-20 08:23] LABS: HEMATOCRIT 31.2 % (37.0-47.0); HEMOGLOBIN 8.6 g/dl (12.0-16.0); MEAN CORPUSCULAR HGB 30.6 pG CALC (26.0-32.0); MEAN CORPUSCULAR HGB CONC 27.6 g/dL CAL (32.0-36.0); RED BLOOD COUNT 2.81 mill/uL (4.20-5.60); RED CELL DISTRI WIDTH 15.5 % (11.5-15.5)
[2022-10-20 08:39] LABS: CREATININE 1.2 mg/dL (0.5-1.0)
[2022-10-20 08:52] LABS: POTASSIUM 5.2 mmol/l (3.5-5.1)
--- NOTE | 2022-10-20 09:15 | NUR ---
TRANSPORTED OFF UNIT VIA W/C TO RADIOLOGY AFTER BEING INFORMED OF ORDERED PROCEDURE, TRANSPORTED BACK TO UNIT AND SETTLED IN BED, CALL FORD IN REACH.
--- NOTE | 2022-10-20 10:55 | NUR ---
ASSISTED TO BR AND BACK TO BED AT THIS TIME.
--- NOTE | 2022-10-20 12:01 | NUR ---
Pt ambulated approx. 240 feet w/ use of a walker. While ambulating took small breaks to catch her breath; otherwise, ambulated w/o much difficulty. Gait was normal. Assessed her O2 when we returned to the room: 98% on room air. Pt layed backed in bed. Safety parameters inititated.
--- NOTE | 2022-10-20 15:53 | NUR ---
RESTING IN BED WATCHING TV PROGRAMS, DECLINE TO AMBULATE AT THIS TIME TELLING TECH TO CME BACK LATER SHE IS WATCHING ONE OF HER FAVORITES PROGRAM.
--- NOTE | 2022-10-20 19:00 | NUR ---
SBAR RECEIVED FROM TWAN TORRES. PATIENT AMBULATORY TO RESTROOM WITH 4 WHEEL WALKER; TOLERATED. WELL.
[2022-10-21 00:05] VITALS: BP 99/50
--- NOTE | 2022-10-21 00:05 | NUR ---
1 PERSON ASSIST TO RESTROOM, TOLERATED WELL. PATIENT GETS SHORT OF BREATH WITH EXERTION BUT RECOVERS WELL. NO C/O PAIN AT THIS TIME, CALL LIGHT WITHIN REACH. ALARM ACTIVATED
[2022-10-21 04:17] VITALS: BP 102/50
--- NOTE | 2022-10-21 04:57 | NUR ---
PATIENT RESTING. VSS, NO DISTRESS NOTED. NO C/O PAIN AT THIS TIME. CALL LIGHT WITHIN REACH.
[2022-10-21 06:26] LABS: BASO% 0.7 % (0-3); EOS% 1.9 % (0-8); HEMATOCRIT 26.2 % (37.0-47.0); HEMOGLOBIN 8.1 g/dl (12.0-16.0); IMMATURE GRANULOCYTES 0.1 % (0.0-5.0); LYMPH% 10.6 % (15-41); MEAN CORPUSCULAR HGB 30.9 pG CALC (26.0-32.0); MEAN CORPUSCULAR HGB CONC 30.9 g/dL CAL (32.0-36.0); NEUT# 5.82 thou/uL (2.00-7.15); NEUT% 77.7 % (42-76); RED BLOOD COUNT 2.62 mill/uL (4.20-5.60); RED CELL DISTRI WIDTH 15.4 % (11.5-15.5)
[2022-10-21 06:37] LABS: ALBUMIN 3.5 g/dL (3.2-5.0); ALKALINE PHOSPHATASE 114 u/l (38-126); ANION GAP 12 (6-22 (CALC)); BILIRUBIN, TOTAL 0.6 mg/dL (0.02-1.3); BUN 23 mg/dL (8-23); BUN/CREATININE RATIO 22 (12-20 (CALC)); CARBON DIOXIDE 18 mmol/l (22-30); CHLORIDE 108 mmol/l (95-108); GFR FOR AFR.AMER. > 60 ML/MIN (>=60 (CALC)); GFR OTHER RACES 54 ML/MIN (>=60 (CALC)); MAGNESIUM 2.4 mg/dL (1.6-2.3); POTASSIUM 3.2 mmol/l (3.5-5.1); SGOT/AST 84 u/l (9-36); SODIUM 135 mmol/l (137-146); TOTAL PROTEIN 6.1 g/dL (6.3-8.2)
[2022-10-21 07:00] VITALS: BP 92/48
--- NOTE | 2022-10-21 07:26 | NUR ---
Pt assisted to bathroom w/use of a walker. Balance while brushing teeth was steady. Gait was normal. Pt sitting comfortably in chair w/ call light in reach and O2 at 3L.
--- NOTE | 2022-10-21 08:00 | NUR ---
PT RESTING IN RECLINER UPON ENTERING ROOM ASSESSMENT COMPLETED. PT BREATHING EVEN AND UNLABORED. TELE MONITOR IN PLACE, CONTINOUS MONITORING PER ED. UPDATED PT IN CURRENT PLAN OF CARE. PT INDICATED UNDERSTANDING. FALL/SAFTEY PRECAUTIONIN PLACE. CALL LIGHT WITHIN REACH.
[2022-10-21 10:40] VITALS: BP 98/53
--- NOTE | 2022-10-21 12:43 | NUR ---
PT SITTING IN RECLINER EATING LUNCH. STATES NO NEEDS AT THIS TIME. NO DISTRESS NOTED. BREATHING EVEN AND UNLABORED. FALL/SAFTEY PRECAUTION IN PLACE. CALL LIGHT WITHINI REACH
--- NOTE | 2022-10-21 14:09 | NUR ---
PT AMUBULATED APPROX. 260 FEET W/ USE OF A WALKER. BALANCE WAS EQUAL. GAIT WAS STEADY. TOWARDS THE END OF THE WALK SHE BEGAN TO BREATH A LITTLE HEAVIER. PT RETURNED TO THE ROOM AND SAT IN CHAIR W/ LEGS ELEVATED. DECLINED TO PUT ON SUPPLEMENTAL O2. CALL LIGHT IN REACH.
--- NOTE | 2022-10-21 14:14 | NUR ---
RETURNED TO PT'S ROOM TO REASSESS BREATHING. BREATHING RHYTYM RETURNED TO NORMAL AND NON-LABORED. PT STATED THEY FELT BETTER AFTER RESTING. CALL LIGHT WITHIN REACH AND PT COMFORTABLY WATCHING TV.
[2022-10-21 14:40] VITALS: BP 96/52
--- NOTE | 2022-10-21 16:00 | NUR ---
PT RESTING IN RECLINER. STATES NO PAIN. BREATHING EVEN AND UNLABORED. FALL/SAFTEY PRECAUTION IN PLACE. CALL LIGHT WITHIN REACH.
--- NOTE | 2022-10-21 18:01 | NUR ---
Discharge instructions given. Patient verbalizes understanding of same. Discharged in stable condition via Wheelchair to Home with staff. All belongings sent with pt.
== END 2022-10-21 18:00 | DRG 641 ==
LOC: ED 23:53 → ED-I 10-20 02:00 → ED 10-20 03:15 → MS2 10-20 03:16
PROVIDERS: Emergency Medicine; Nurse Practitioner Family; ADMIT Internal Medicine; ATTEND Internal Medicine
DX: E87.5 Hyperkalemia (principal); N17.9 Acute kidney failure, unspecified; I11.0 Hypertensive heart disease with heart failure; I50.9 Heart failure, unspecified; J43.9 Emphysema, unspecified; I25.10 Atherosclerotic heart disease of native coronary artery without angina pectoris; I48.91 Unspecified atrial fibrillation; R74.8 Abnormal levels of other serum enzymes; K21.9 Gastro-esophageal reflux disease without esophagitis; F41.9 Anxiety disorder, unspecified; F32.A Depression, unspecified; R82.71 Bacteriuria; Z99.81 Dependence on supplemental oxygen; Z87.891 Personal history of nicotine dependence; Z20.822 Contact with and (suspected) exposure to COVID-19

== ENCOUNTER 2022-11-05 11:17 | Inpatient (IN) | payer MEDICARE ==
[2022-11-05] VITALS (26 sets, daily range): BP systolic 112–186; BP diastolic 52–99
[~2022-11-05] VITALS: Ht 162.6 cm; Wt 68.7 kg
[~2022-11-05 11:17] MED LIST changes: +PLAVIX75 MG PO; +VAZALORE81 MG
--- NOTE | 2022-11-05 11:17 | NUR ---
PATIENT TO ROOM VIA EMS.
--- NOTE | 2022-11-05 11:20 | NUR ---
PATIENT BROUGHT IN THE THE ED WITH RESPIRATORY DISTRESS. SHE WAS 70% PSO2 PRIOR TO EMS PLACING PATIENT ON C-PAP. IV ACCESS OBTAINED IN THE LEFT AC, 20G . BLOOD AND 1ST SET OF BLOOD CUTURES OBTAINED. DR. GARCIA AT THE BEDSIDE AND BIPAP ORDERED.
--- NOTE | 2022-11-05 11:35 | NUR ---
SECOND SET OF CULTURES OBTAINED.
[2022-11-05 11:43] LABS: BASO% 0.2 % (0-3); EOS% 0.2 % (0-8); IMMATURE GRANULOCYTES 0.3 % (0.0-5.0); LYMPH% 3.8 % (15-41); MEAN CELL VOLUME 99.7 fL CALC (80.0-100.0); MEAN CORPUSCULAR HGB 29.7 pG CALC (26.0-32.0); MEAN CORPUSCULAR HGB CONC 29.7 g/dL CAL (32.0-36.0); MONO% 4.8 % (2-13); NEUT# 17.78 thou/uL (2.00-7.15); NEUT% 90.7 % (42-76); RED BLOOD COUNT 3.81 mill/uL (4.20-5.60); RED CELL DISTRI WIDTH 15.3 % (11.5-15.5)
[2022-11-05 11:45] LABS: HEMOGLOBIN 11.3 g/dl (12.0-16.0)
--- NOTE | 2022-11-05 12:00 | NUR ---
ABT'S INITIATED. LASIX 40MG IV ALSO GIVEN. PATIENT REQUESTED THE USE OF A PUREWIK. PUREWIK IN PLACE. PATIENT IS NOW RESTING. NO DISTRESS.
[2022-11-05 12:01] LABS: ALBUMIN 4.2 g/dL (3.2-5.0); ALKALINE PHOSPHATASE 97 u/l (38-126); ANION GAP 14 (6-22 (CALC)); BILIRUBIN, TOTAL 0.9 mg/dL (0.02-1.3); BUN 10 mg/dL (8-23); BUN/CREATININE RATIO 14 (12-20 (CALC)); CARBON DIOXIDE 26 mmol/l (22-30); CHLORIDE 106 mmol/l (95-108); CREATININE 0.7 mg/dL (0.5-1.0); GFR FOR AFR.AMER. > 60 ML/MIN (>=60 (CALC)); GFR OTHER RACES > 60 ML/MIN (>=60 (CALC)); POTASSIUM 3.9 mmol/l (3.5-5.1); SGOT/AST 29 u/l (9-36); SODIUM 142 mmol/l (137-146); TOTAL PROTEIN 6.9 g/dL (6.3-8.2)
--- NOTE | 2022-11-05 12:58 | NUR ---
DR. GARCIA AT THE BEDSIDE AND DISCUSSED POC WITH PATIENT . PATIENT IS NOW SLEEPING. NO DISTRESS. V/S STABLE.
--- NOTE | 2022-11-05 14:10 | NUR ---
O2 SAT ON 60% FIO2 IS 99%. DECREASED FIO2 TO 50%.
--- NOTE | 2022-11-05 15:13 | NUR ---
FIO2 DECREASED TO 40%
--- NOTE | 2022-11-05 15:28 | NUR ---
VERBAL REPORT CALLED TO ALVAREZ RN IN ICU. PATIENT RECIEVING BREATHING TREATMENT NOW OFF BIPAP AND ON 4L VIA NASAL CANNULA. PATIENT TRANSFERED TO ICU.
--- NOTE | 2022-11-05 15:44 | NUR ---
TOBI LINDOBY. PT ON 5L UT.
--- NOTE | 2022-11-05 16:00 | NUR ---
RCD REPORT FROM TYRESE. PT ON 4L NC. PT LUNGS ARE CRACKLES BILAT. EDEMA LOWER EXTREM BILAT. PT A/OX3. PUREWICK IN PLACE. VSS. IV IN PLACE. HR NSR. PT DENIES ANY COMPLAINTS AT THIS TIME.
[2022-11-05 17:02] LABS: URINE BILIRUBIN - DIPSTICK NEGATIVE (NEGATIVE); URINE BLOOD DIPSTICK SMALL (NEGATIVE); URINE COLOR YELLOW; URINE GLUCOSE - DIPSTICK NEGATIVE (NEGATIVE); URINE KETONE NEGATIVE (NEGATIVE); URINE LEUK ESTERASE NEGATIVE (NEGATIVE); URINE PROTEIN - DIPSTICK NEGATIVE (NEG-TRACE); URINE SPECIFIC GRAVITY 1.015; URINE UROBILINOGEN - DIPSTICK 0.2 E.U./dL (0.2)
[2022-11-05 17:15] LABS: URINE NITRITE - DIPSTICK NEGATIVE (Negative)
[2022-11-05 17:16] LABS: URINE WBC 0-2 WBC/hpf (0-5)
--- NOTE | 2022-11-05 18:07 | NUR ---
PT SITTING UP EATING SUPPER.
--- NOTE | 2022-11-05 19:00 | NUR ---
REPORT RECEIVED FROM OFF GOING NURSE.
--- NOTE | 2022-11-05 19:15 | NUR ---
PATIENT NOTED LYING IN BED WITH NO ACUTE DISTRESS NOTED. SHE DENIES ANY PAIN OR DISCOMFORT AT THIS TIME. ASSESSMENT COMPLETED. SHE IS ALERT AND ORIENTED X3. VSS. LUNGS CLEAR AND DIMINISHED IN THE BASES. BOWEL SOUNDS ACTIVE. +1 PITTING EDEMA NOTED TO THE BILATERAL LOWER EXTREMETIES. SKIN INTACT. IVS NOTED SL, PATENT, DRESSING SITES CLEAN, DRY, AND INTACT. BED LOCKED, IN LOW POSITION, CALL LIGHT WITHIN REACH. WILL CONTINUE TO MONITOR.
--- NOTE | 2022-11-05 19:22 | NUR ---
CRITICAL LAB CALLED IN TO DR. SERRANO, TROPONIN [phone]. ORDER RECEIVED TO START LOVENOX 1MG/KG BID, START FIRST DOSE NOW; STAT EKG; AND TRANSFER PATIENT TO [facility]. PATIENT DENIES ANY PAIN OR DISCOMFORT AT THIS TIME. ORDER WRITTEN AND FAXED TO PHARMACY.
--- NOTE | 2022-11-05 19:39 | NUR ---
EKG COMPLETED, RESULTS SENT TO DR. SERRANO.
--- NOTE | 2022-11-05 19:42 | NUR ---
SPOKE WITH AHMET AT THE TRANSFER CENTER TO BEGIN TRANSFER.
--- NOTE | 2022-11-05 20:17 | NUR ---
RECEIVED CALL FROM DR. SERRANO TO CANCEL TRANSFER. TRANSFER CENTER CALLED, SPOKE WITH AHMET; TRANSFER CANCELED. HE STATED TO NOTIFY HIM OF ANY DISTRESS OR CHANGES NOTED WITH PATIENT. WILL CONTINUE TO MONITOR.
--- NOTE | 2022-11-05 22:00 | NUR ---
PATIENT SITTING UP IN BED HAVING A BREATHING TREATMENT. NO S/S OF ACUTE DISTRESS NOTED AT THIS TIME. BED LOCKED, IN LOW POSITION, CALL LIGHT WITHIN REACH. WILL CONTINUE TO MONITOR.
[2022-11-06] VITALS (46 sets, daily range): BP systolic 120–147; BP diastolic 64–92
--- NOTE | 2022-11-06 | NUR ---
PATIENT NOTED LYING IN BED RESTING COMFORTABLY WITH NO ACUTE DISTRESS NOTED. WILL CONTINUE TO MONITOR.
--- NOTE | 2022-11-06 02:00 | NUR ---
PATIENT LYING IN BED SLEEPING COMFORTABLY WITH NO ACUTE DISTRESS NOTED. WILL CONTINUE TO MONITOR.
[2022-11-06 05:15] LABS: MEAN CELL VOLUME 97.4 fL CALC (80.0-100.0); MEAN CORPUSCULAR HGB 29.7 pG CALC (26.0-32.0); MEAN CORPUSCULAR HGB CONC 30.5 g/dL CAL (32.0-36.0); RED BLOOD COUNT 3.1 mill/uL (4.20-5.60); RED CELL DISTRI WIDTH 14.9 % (11.5-15.5)
[2022-11-06 05:41] LABS: ALBUMIN 3.6 g/dL (3.2-5.0); ALKALINE PHOSPHATASE 73 u/l (38-126); ANION GAP 11 (6-22 (CALC)); BILIRUBIN, TOTAL 1.1 mg/dL (0.02-1.3); BUN 13 mg/dL (8-23); BUN/CREATININE RATIO 19 (12-20 (CALC)); CARBON DIOXIDE 26 mmol/l (22-30); CHLORIDE 103 mmol/l (95-108); CREATININE 0.7 mg/dL (0.5-1.0); GFR FOR AFR.AMER. > 60 ML/MIN (>=60 (CALC)); GFR OTHER RACES > 60 ML/MIN (>=60 (CALC)); MAGNESIUM 2.1 mg/dL (1.6-2.3); POTASSIUM 3.7 mmol/l (3.5-5.1); SGOT/AST 32 u/l (9-36); SODIUM 136 mmol/l (137-146); TOTAL PROTEIN 6.1 g/dL (6.3-8.2)
[2022-11-06 06:03] LABS: HEMATOCRIT 30.2 % (37.0-47.0); HEMOGLOBIN 9.2 g/dl (12.0-16.0)
--- NOTE | 2022-11-06 06:27 | NUR ---
PATIENT LYING IN BED WITH NO ACUTE DISTRESS NOTED. VSS. BED LOCKED, IN LOW POSITION, CALL LIGHT WITHIN REACH. WILL CONTINUE TO MONITOR.
--- NOTE | 2022-11-06 06:33 | NUR ---
REPORT GIVEN TO ONCOMING NURSE.
--- NOTE | 2022-11-06 08:07 | NUR ---
PT SEEN AWAKE, ALERT, ORIENTED X 3. PT STATES THAT SHE IS FEELING BETTER THAN WHEN SHE ARRIVED TO HOSPITAL. 4 LPM NC. PT WITH MURMUR, COINCIDES WITH KNOWN MITRAL VALVE INSUFFICIENCY.
--- NOTE | 2022-11-06 10:00 | NUR ---
PT SEEN BY DR BIRMINGHAM THIS MORNING, CONTINUES TO DO WELL ON 4 LPM. PT STATES SHE DOES FEEL BETTER THAN YESTERDAY. EXPLANATION PROVIDED BY DR AGUILA REGARDING MITRAL VALVE SEVERE INSUFFICIENCY AND HOW THAT CAUSES HER SYMPTOMS.
--- NOTE | 2022-11-06 12:00 | NUR ---
FRIENDS HAVE BROUGHT NONFORMULARY MEDS, SENT TO PHARMACY FOR VERIFICATION. PT CONTINUES BEFORE, NO DISTRESS.
--- NOTE | 2022-11-06 15:02 | NUR ---
PT AT REST IN THE BED, NO DISTRESS, HAS HAD VISITORS TO BEDSIDE.
--- NOTE | 2022-11-06 16:20 | NUR ---
PT CONTINUES AT REST IN THE BED, NO DISTRESS.
--- NOTE | 2022-11-06 18:18 | NUR ---
PT DOING WELL THIS AFTERNOON, HAS USED BSC WITHOUT ASSIST. NO RESPIRATORY ISSUES NOTED.
--- NOTE | 2022-11-06 22:00 | NUR ---
PT IS RESTING IN BED AND WATCHING TV. HAS NO COMPLAINS.
[2022-11-07] VITALS (11 sets, daily range): BP systolic 123–143; BP diastolic 69–88
--- NOTE | 2022-11-07 00:41 | NUR ---
PT IS SLEEPING COMFORTABLY AND IN STABLE CONDITION. ON 4L OF OXYGEN TOLERATING IT WELL.
--- NOTE | 2022-11-07 04:29 | NUR ---
PT SLEEPING, NO EVENTS, IN STABLE CONDITION. ON O2 NC.
[2022-11-07 06:35] LABS: HEMATOCRIT 31.7 % (37.0-47.0); HEMOGLOBIN 9.7 g/dl (12.0-16.0); MEAN CELL VOLUME 98.1 fL CALC (80.0-100.0); MEAN CORPUSCULAR HGB CONC 30.6 g/dL CAL (32.0-36.0); RED BLOOD COUNT 3.23 mill/uL (4.20-5.60); RED CELL DISTRI WIDTH 15.3 % (11.5-15.5)
[2022-11-07 07:04] LABS: ALBUMIN 3.9 g/dL (3.2-5.0); ALKALINE PHOSPHATASE 64 u/l (38-126); ANION GAP 13 (6-22 (CALC)); BUN 18 mg/dL (8-23); BUN/CREATININE RATIO 24 (12-20 (CALC)); CARBON DIOXIDE 26 mmol/l (22-30); CHLORIDE 102 mmol/l (95-108); CREATININE 0.8 mg/dL (0.5-1.0); GFR FOR AFR.AMER. > 60 ML/MIN (>=60 (CALC)); GFR OTHER RACES > 60 ML/MIN (>=60 (CALC)); MAGNESIUM 2.3 mg/dL (1.6-2.3); POTASSIUM 3.5 mmol/l (3.5-5.1); SGOT/AST 29 u/l (9-36); SODIUM 138 mmol/l (137-146); TOTAL PROTEIN 6.5 g/dL (6.3-8.2)
[2022-11-07 07:08] LABS: BILIRUBIN, TOTAL 0.5 mg/dL (0.02-1.3)
--- NOTE | 2022-11-07 08:00 | NUR ---
Patient sitting up in chair. Denies pain at this time. Patient awaiting discharge orders per Dr. Fisher. No s/s of distress. Will continue to monitor.
--- NOTE | 2022-11-07 08:16 | NUR ---
Prelimimary culture results called to . No new orders.
[2022-11-07] MEDS ORDERED: VIBRAMYCIN100 M2 PO (08:20)
[2022-11-07] MEDS ORDERED: PREDNISONE10 MG PO (08:21)
--- NOTE | 2022-11-07 10:50 | NUR ---
Discharge instructions given. Patient verbalizes understanding of same. Discharged in stable condition via Wheelchair to Home with friend. All belongings sent with pt.
--- NOTE | 2022-11-10 16:47 | NUR ---
FINAL BLOOD CULTURE RESULT CALLED TO DR VARGAS. MARLON KAM IN 06/04, CONTAMINATION NO CHANGES NEEDED.
== END 2022-11-07 10:50 | DRG 291 ==
LOC: ED 11:17 → ICU 14:39
PROVIDERS: Family Medicine; ADMIT Internal Medicine; ATTEND Internal Medicine
PROC: 5A09357 Assistance with Respiratory Ventilation, Less than 24 Consecutive Hours, Continuous Positive Airway Pressure (ICD-10-PCS; principal; 2022-11-05)
DX: I11.0 Hypertensive heart disease with heart failure (principal); I50.33 Acute on chronic diastolic (congestive) heart failure; J18.9 Pneumonia, unspecified organism; J96.11 Chronic respiratory failure with hypoxia; I24.8 Other forms of acute ischemic heart disease; I34.0 Nonrheumatic mitral (valve) insufficiency; J43.9 Emphysema, unspecified; I48.91 Unspecified atrial fibrillation; I25.10 Atherosclerotic heart disease of native coronary artery without angina pectoris; K21.9 Gastro-esophageal reflux disease without esophagitis; F41.9 Anxiety disorder, unspecified; F32.A Depression, unspecified; F10.10 Alcohol abuse, uncomplicated; Z87.891 Personal history of nicotine dependence; Z99.81 Dependence on supplemental oxygen; Z87.01 Personal history of pneumonia (recurrent); Z20.822 Contact with and (suspected) exposure to COVID-19
CPT/HCPCS: J1650

== ENCOUNTER 2023-12-28 10:05 | Emergency (ER) | payer MEDICARE ==
[2023-12-28] VITALS (22 sets, daily range): BP systolic 113–135; BP diastolic 54–72
[~2023-12-28] VITALS: Ht 162.6 cm; Wt 68.0 kg
[~2023-12-28 10:05] MED LIST changes: +VIBRAMYCIN100 M2 PO
[2023-12-28 10:33] LABS: BASO% 0.1 % (0-3); EOS% 1.3 % (0-8); HEMATOCRIT 25.9 % (37.0-47.0); IMMATURE GRANULOCYTES 0.1 % (0.0-5.0); LYMPH% 3.3 % (15-41); MEAN CORPUSCULAR HGB 32.3 pG CALC (26.0-32.0); MEAN CORPUSCULAR HGB CONC 30.9 g/dL CAL (32.0-36.0); MONO% 6.6 % (2-13); NEUT# 10.26 thou/uL (2.00-7.15); NEUT% 88.6 % (42-76); RED BLOOD COUNT 2.48 mill/uL (4.20-5.60); RED CELL DISTRI WIDTH 16.2 % (11.5-15.5)
[2023-12-28 10:37] LABS: MEAN CELL VOLUME 104.4 fL CALC (80.0-100.0)
[2023-12-28 10:48] LABS: INTERNATIONAL NORMALIZED RATIO 1.2 RATIO (0.7-1.3)
[2023-12-28] MEDS ORDERED: SIMBRINZA1 SUS OU (10:59)
[2023-12-28] MEDS ORDERED: MIDODRINE10 MG PO (11:00)
[2023-12-28] MEDS ORDERED: LEVOTHYROXIN25 MC1 PO (11:01)
[2023-12-28] MEDS ORDERED: LATANOPROST0.005 % OU (11:02)
[2023-12-28 11:38] LABS: ALBUMIN 4.6 g/dL (3.2-5.0); CREATININE 0.8 mg/dL (0.5-1.0); POTASSIUM 3.7 mmol/l (3.5-5.1); TOTAL PROTEIN 7.9 g/dL (6.3-8.2)
[2023-12-28] MEDS ORDERED: ENOXAPARIN SODIUM 100 MG/ML SYR SC ONE (13:10)
[2023-12-28] MEDS ORDERED: NITROGLYCERIN 0.4 MG/TAB SL ONE (13:10)
[2023-12-28] MEDS ORDERED: ASPIRIN 81 MG/TAB PO ONE (14:10)
== END 2023-12-28 15:20 | disposition short-term general hospital (02) ==
LOC: ED 10:05
PROVIDERS: Family Medicine
DX: I21.4 Non-ST elevation (NSTEMI) myocardial infarction (principal); I10 Essential (primary) hypertension; J44.9 Chronic obstructive pulmonary disease, unspecified; I48.91 Unspecified atrial fibrillation; Z99.81 Dependence on supplemental oxygen; Z87.01 Personal history of pneumonia (recurrent); Z98.890 Other specified postprocedural states
CPT/HCPCS: J1650

== ENCOUNTER 2024-03-12 16:22 | Emergency (ER) | payer MEDICARE ==
[2024-03-12] VITALS (9 sets, daily range): BP systolic 116–155; BP diastolic 44–62
[~2024-03-12] VITALS: Ht 162.6 cm; Wt 65.0 kg
[~2024-03-12 16:22] MED LIST changes: +LATANOPROST0.005 % OU; +LEVOTHYROXIN25 MC1 PO; +MIDODRINE10 MG PO; +SIMBRINZA1 SUS OU
[2024-03-12 16:52] LABS: BASO% 0.3 % (0-3); EOS% 1.7 % (0-8); HEMATOCRIT 28.2 % (37.0-47.0); HEMOGLOBIN 8.7 g/dl (12.0-16.0); IMMATURE GRANULOCYTES 0.3 % (0.0-5.0); LYMPH% 9.6 % (15-41); MEAN CELL VOLUME 91.6 fL CALC (80.0-100.0); MEAN CORPUSCULAR HGB 28.2 pG CALC (26.0-32.0); MEAN CORPUSCULAR HGB CONC 30.9 g/dL CAL (32.0-36.0); MONO% 7.9 % (2-13); NEUT# 9.37 thou/uL (2.00-7.15); NEUT% 80.2 % (42-76); RED BLOOD COUNT 3.08 mill/uL (4.20-5.60); RED CELL DISTRI WIDTH 16.2 % (11.5-15.5)
[2024-03-12 17:06] LABS: ALBUMIN 4.2 g/dL (3.2-5.0); POTASSIUM 3.8 mmol/l (3.5-5.1); TOTAL PROTEIN 7.9 g/dL (6.3-8.2)
[2024-03-12 17:12] LABS: ACT PARTIAL THROMBO TIME 79.9 SECONDS (20.0-32.5)
[2024-03-12 17:14] LABS: D-DIMER 1.63 mg/L (0.19-0.60)
[2024-03-12 17:30] LABS: URINE BILIRUBIN - DIPSTICK Negative (NEGATIVE); URINE BLOOD DIPSTICK Moderate (NEGATIVE); URINE GLUCOSE - DIPSTICK Negative (NEGATIVE); URINE KETONE Negative (NEGATIVE); URINE NITRITE - DIPSTICK Negative (Negative); URINE PH 5.5 (4.5-8.0); URINE PROTEIN - DIPSTICK Negative (NEG-TRACE); URINE SPECIFIC GRAVITY 1.015; URINE UROBILINOGEN - DIPSTICK 0.2 E.U./dL (0.2)
[2024-03-12 17:31] LABS: URINE COLOR Yellow; URINE LEUK ESTERASE Small (NEGATIVE)
[2024-03-12 17:39] LABS: URINE HYALINE CAST FEW lpf (NONE-RARE)
[2024-03-12] MEDS ORDERED: SODIUM CHLORIDE 0.9% 1,000 ML IV SCH (17:40)
[2024-03-12] MEDS ORDERED: SODIUM CHLORIDE 0.9% 1,000 ML IV ONE (18:00)
[2024-03-12] MEDS ORDERED: CIPROFLOXACN750 MG PO (19:56)
== END 2024-03-12 20:08 | disposition home or self-care (01) ==
LOC: ED 16:22
PROVIDERS: Clinical Nurse Specialist Emergency
DX: E86.0 Dehydration (principal); I10 Essential (primary) hypertension; J44.9 Chronic obstructive pulmonary disease, unspecified; K21.9 Gastro-esophageal reflux disease without esophagitis; I48.91 Unspecified atrial fibrillation; I27.20 Pulmonary hypertension, unspecified; Z99.81 Dependence on supplemental oxygen; R82.71 Bacteriuria